=== PATIENT | female | born 1935 ===

== ENCOUNTER → 2017-06-16 | Outpatient (CLI) | payer MEDICARE ==
--- NOTE | 2017-06-16 14:16 | MM ---
Reason for exam: clinical finding. Last mammogram was performed 5 years and 5 months ago. History: Patient is postmenopausal. Physical Findings: Nurse did not find any significant physical abnormalities on exam. MG 3D Diag Mammo W/Cad HUEY Bilateral CC and MLO view(s) were taken. Prior study comparison: January 19, 2012, bilateral digital screening mammo w/CAD. January 15, 2011, bilateral digital screening mammo w/CAD. No significant new findings when compared with previous films. These results were verbally communicated with the patient and result sheet given to the patient on 06/16/17. ASSESSMENT: Negative, BI-RAD 1 RECOMMENDATION: Routine screening mammogram of both breasts in 1 year. Manage patient on a clinical basis.
== END | disposition home or self-care (01) ==
LOC: RADMAMWWP 13:27
PROVIDERS: ATTEND Internal Medicine
DX: N63 Unspecified lump in breast (principal)
CPT/HCPCS: G0204; G0279

== ENCOUNTER 2017-09-24 20:58 | Emergency (ER) | payer MEDICARE ==
[2017-09-24 21:10] VITALS: TEMP 97
[2017-09-24 21:10] LABS: Glucose,Whole Blood 93 mg/dL (75-99)
--- NOTE | 2017-09-24 21:32 | ED ---
General Adult HPI - General Chief complaint: Fall Stated complaint: Fall Time Seen by Provider: 09/24/17 21:23 Source: patient, family, EMS, RN notes reviewed Mode of arrival: EMS Limitations: no limitations - History of Present Illness Initial comments: Patient is a pleasant 81-year-old female presenting to the emergency department after a fall. Patient was reportedly on the third or fourth step. Patient fell and reportedly had her bottom and then head. Son states he did not witness it but heard it. He states patient was less responsive for several seconds once he rushed over to check on her. Patient does not recall the episode. Patient is unclear if she passed out. Patient denies any headache. No neck or back pain. No chest pain or dyspnea. No abdominal pain. No extremity injury. Patient does not take blood thinners. - Related Data Allergies Allergy/AdvReac Type Severity Reaction Status Date / Time No Known Allergies Allergy Verified 09/24/17 21:10 Review of Systems ROS Statement: Those systems with pertinent positive or pertinent negative responses have been documented in the HPI. ROS Other: All systems not noted in ROS Statement are negative. Constitutional: Denies: fever, chills Eyes: Denies: eye pain ENT: Denies: ear pain Respiratory: Denies: cough Cardiovascular: Denies: chest pain Endocrine: Denies: fatigue Gastrointestinal: Denies: abdominal pain Genitourinary: Denies: dysuria Musculoskeletal: Denies: back pain Skin: Denies: rash Neurological: Denies: headache, weakness, confusion Past Medical History Past Medical History: No Reported History History of Any Multi-Drug Resistant Organisms: None Reported Past Surgical History: Hysterectomy Past Psychological History: No Psychological Hx Reported Smoking Status: Former smoker Past Alcohol Use History: Rare Past Drug Use History: None Reported General Exam Limitations: no limitations General appearance: alert, in no apparent distress Head exam: Present: atraumatic, normocephalic Eye exam: Present: normal appearance, PERRL, EOMI. Absent: nystagmus ENT exam: Present: normal oropharynx Neck exam: Present: normal inspection. Absent: tenderness Respiratory exam: Present: normal lung sounds bilaterally Cardiovascular Exam: Present: regular rate, normal rhythm Expanded Peripheral pulses: 2+: Radial (R), Radial (L), Dorsalis Pedis (R), Dorsalis Pedis (L) GI/Abdominal exam: Present: soft. Absent: tenderness Extremities exam: Present: normal inspection, full ROM. Absent: tenderness Back exam: Present: normal inspection. Absent: tenderness, vertebral tenderness Neurological exam: Present: alert, oriented X3, CN II-XII intact. Absent: motor sensory deficit Expanded Patient oriented to: Present: person, place, time Speech: Present: fluid speech Cranial nerves: EOM's Intact: Normal, Facial Sensation: Normal Sensory exam: Upper Extremity Light Touch: Normal, Lower Extremity Light Touch: Normal Motor strength exam: RUE: 5, LUE: 5, RLE: 5, LLE: 5 Eye Response: (4) open spontaneously Motor Response: (6) obeys commands Verbal Response: (5) oriented Psychiatric exam: Present: normal affect, normal mood Skin exam: Present: normal color Course Vital Signs 09/24/17 09/24/17 09/24/17 21:02 22:30 23:37 Temperature 97.0 F L 97.0 F L Pulse Rate 75 82 70 Respiratory 20 20 18 Rate Blood Pressure 157/81 140/78 125/70 O2 Sat by Pulse 95 98 96 Oximetry - Reevaluation(s) Reevaluation #1: 09/24/17 23:32 Dr. Jaimes has been paged for admission for Dr. Lock. 09/25/17 00:42 Patient was updated on results and plan. Family was also updated. Case was discussed in detail with Dr. Jaimes, who will admit. Patient then refuses to stay. Patient does demonstrate medical decision making. Patient is made aware that causes of syncope have not been excluded at this time. It is unclear if patient's episode is related to a syncopal episode or retrograde amnesia from the fall and head injury. Patient will leave AGAINST MEDICAL ADVICE. EKG Findings - EKG Comments: EKG Findings:: Normal sinus rhythm 68. TX 150. QRS 80. QT 400. QTc 425. Left axis. Inferior Q waves. No acute ST change. Medical Decision Making - Medical Decision Making Patient did not wait for discharge instructions. Patient was advised to follow- up with her doctor Tuesday. - Lab Data Result diagrams: 09/24/17 21:18 09/24/17 21:18 Lab Results 09/24/17 09/24/17 09/24/17 Range/Units 21:04 21:18 21:18 WBC 6.9 (3.8-10.6) k/uL RBC 4.41 (3.80-5.40) m/uL Hgb 11.9 (11.4-16.0) gm/dL Hct 38.5 (34.0-46.0) % MCV 87.4 (80.0-100.0) fL MCH 27.0 (25.0-35.0) pg MCHC 30.9 L (31.0-37.0) g/dL RDW 13.6 (11.5-15.5) % Plt Count 438 (150-450) k/uL Neutrophils % 68 % Lymphocytes % 19 % Monocytes % 6 % Eosinophils % 4 % Basophils % 1 % Neutrophils # 4.7 (1.3-7.7) k/uL Lymphocytes # 1.3 (1.0-4.8) k/uL Monocytes # 0.4 (0-1.0) k/uL Eosinophils # 0.3 (0-0.7) k/uL Basophils # 0.1 (0-0.2) k/uL PT (9.0-12.0) sec INR (<1.2) APTT (22.0-30.0) sec Sodium (137-145) mmol/L Potassium (3.5-5.1) mmol/L Chloride (98-107) mmol/L Carbon Dioxide (22-30) mmol/L Anion Gap mmol/L BUN (7-17) mg/dL Creatinine (0.52-1.04) mg/dL Est GFR (MDRD) Af Amer (>60 ml/min/1.73 sqM) Est GFR (MDRD) Non-Af (>60 ml/min/1.73 sqM) Glucose (74-99) mg/dL POC Glucose (mg/dL) 93 (75-99) mg/dL POC Glu [employer] ID [place] Calcium (8.4-10.2) mg/dL Total Bilirubin (0.2-1.3) mg/dL AST (14-36) U/L ALT (9-52) U/L Alkaline Phosphatase (38-126) U/L Total Creatine Kinase 188 H (30-135) U/L CK-MB (CK-2) 3.2 H* (0.0-2.4) ng/mL CK-MB (CK-2) Rel Index 1.7 Troponin I <0.012 (0.000-0.034) ng/mL Total Protein (6.3-8.2) g/dL Albumin (3.5-5.0) g/dL Urine Color Urine Appearance (Clear) Urine pH (5.0-8.0) Ur Specific [place] (1.001-1.035) Urine Protein (Negative) Urine Glucose (UA) (Negative) Urine Ketones (Negative) Urine Blood (Negative) Urine Nitrite (Negative) Urine Bilirubin (Negative) Urine Urobilinogen (<2.0) mg/dL Ur Leukocyte Esterase (Negative) Urine RBC (0-5) /hpf Urine WBC (0-5) /hpf Urine WBC Clumps (None) /hpf Urine Bacteria (None) /hpf Urine Mucus (None) /hpf 09/24/17 09/24/17 09/24/17 Range/Units 21:18 21:18 21:18 WBC (3.8-10.6) k/uL RBC (3.80-5.40) m/uL Hgb (11.4-16.0) gm/dL Hct (34.0-46.0) % MCV (80.0-100.0) fL MCH (25.0-35.0) pg MCHC (31.0-37.0) g/dL RDW (11.5-15.5) % Plt Count (150-450) k/uL Neutrophils % % Lymphocytes % % Monocytes % % Eosinophils % % Basophils % % Neutrophils # (1.3-7.7) k/uL Lymphocytes # (1.0-4.8) k/uL Monocytes # (0-1.0) k/uL Eosinophils # (0-0.7) k/uL Basophils # (0-0.2) k/uL PT 10.4 (9.0-12.0) sec INR 1.0 (<1.2) APTT 24.2 (22.0-30.0) sec Sodium 140 (137-145) mmol/L Potassium 3.8 (3.5-5.1) mmol/L Chloride 106 (98-107) mmol/L Carbon Dioxide 22 (22-30) mmol/L Anion Gap 12 mmol/L BUN 21 H (7-17) mg/dL Creatinine 1.10 H (0.52-1.04) mg/dL Est GFR (MDRD) Af Amer 58 (>60 ml/min/1.73 sqM) Est GFR (MDRD) Non-Af 48 (>60 ml/min/1.73 sqM) Glucose 90 (74-99) mg/dL POC Glucose (mg/dL) (75-99) mg/dL POC Glu [employer] Specialist ID Calcium 9.5 (8.4-10.2) mg/dL Total Bilirubin 0.2 (0.2-1.3) mg/dL AST 31 (14-36) U/L ALT 42 (9-52) U/L Alkaline Phosphatase 71 (38-126) U/L Total Creatine Kinase (30-135) U/L CK-MB (CK-2) (0.0-2.4) ng/mL CK-MB (CK-2) Rel Index Troponin I (0.000-0.034) ng/mL Total Protein 6.8 (6.3-8.2) g/dL Albumin 3.9 (3.5-5.0) g/dL Urine Color Light Yellow Urine Appearance Clear (Clear) Urine pH 6.0 (5.0-8.0) Ur Specific [place] 1.004 (1.001-1.035) Urine Protein Negative (Negative) Urine Glucose (UA) Negative (Negative) Urine Ketones Negative (Negative) Urine Blood Negative (Negative) Urine Nitrite Negative (Negative) Urine Bilirubin Negative (Negative) Urine Urobilinogen <2.0 (<2.0) mg/dL Ur Leukocyte Esterase Trace H (Negative) Urine RBC <1 (0-5) /hpf Urine WBC 2 (0-5) /hpf Urine WBC Clumps Rare H (None) /hpf Urine Bacteria Rare H (None) /hpf Urine Mucus Rare H (None) /hpf - Radiology Data Radiology results: report reviewed (Computed tomography scan of the brain and cervical spine show no acute process. Degenerative disc disease. Age-related atrophy and chronic small vessel disease.), image reviewed (Chest x-ray shows no acute process.) Disposition Clinical Impression: Fall Disposition: Left Against Medical Advice Instructions: Fall Prevention for Older Adults (ED), Syncope (ED) Referrals: Ifeanyi Lock MD [Primary Care Provider] - 1-2 days
[2017-09-24 21:40] LABS: Basophils # (A) 0.1 k/uL (0-0.2); Basophils % (A) 1 %; CH 27.6; CHCM 31.8; Eosinophils # (A) 0.3 k/uL (0-0.7); Eosinophils % (A) 4 %; HCT 38.5 % (34.0-46.0); HDW 2.06; HGB 11.9 gm/dL (11.4-16.0); Luc # (Auto) 0.14; Luc % (Auto) 2; Lymphocytes # (A) 1.3 k/uL (1.0-4.8); Lymphocytes % (A) 19 %; MCHC 30.9 g/dL (31.0-37.0); MCV 87.4 fL (80.0-100.0); Mean Platelet Volume 6.8; Monocytes # (A) 0.4 k/uL (0-1.0); Monocytes % (A) 6 %; Neutrophils # (A) 4.7 k/uL (1.3-7.7); Neutrophils % (A) 68 %; RBC 4.41 m/uL (3.80-5.40); RDW 13.6 % (11.5-15.5); WBC 6.9 k/uL (3.8-10.6)
[2017-09-24 21:48] LABS: Partial Thromboplastin Time 24.2 sec (22.0-30.0); Prothrombin Time 10.4 sec (9.0-12.0)
[2017-09-24 21:50] LABS: Calcium 9.5 mg/dL (8.4-10.2); Potassium 3.8 mmol/L (3.5-5.1); Total Bilirubin 0.2 mg/dL (0.2-1.3); Total Protein 6.8 g/dL (6.3-8.2)
--- NOTE | 2017-09-24 21:52 | XR ---
EXAMINATION TYPE: XR chest 2V DATE OF EXAM: 09/24/2017 COMPARISON: NONE HISTORY: Syncope TECHNIQUE: Frontal and lateral views of the chest are obtained. FINDINGS: There is no focal air space opacity, pleural effusion, or pneumothorax seen. Mediastinum i s rotated to the right accentuating the right hilum and shifting the trachea towards the right. Focal curvilinear density at the right lateral chest is thought to represent overlying soft tissues versus pleural thickening. There is an exaggerated kyphosis of the thoracic spine and generalized osseous d emineralization with multilevel mild degenerative changes of the thoracic spine. Pulmonary per inflat ion and flattening of the diaphragms on the lateral image as well as increased anterior posterior reggie meter of the chest relates to COPD. Probable chronic prominent interstitial lung markings are noted. IMPRESSION: No acute cardiopulmonary process. Radiographic sequela of COPD.
[2017-09-24 22:03] LABS: Creatine Kinase 188 U/L (30-135)
[2017-09-24 22:16] LABS: Troponin I <0.012 ng/mL (0.000-0.034)
--- NOTE | 2017-09-24 22:16 | CT ---
EXAMINATION TYPE: CT brain filiberto clifford DATE OF EXAM: 09/24/2017 COMPARISON: NONE HISTORY: Patient complains of headache post syncopal fall today. Patient denies neck complaints at t chacorta of service. CT DLP: 1123.3 mGycm. Automated Exposure Control for Dose Reduction was Utilized. TECHNIQUE: CT scan of the head and cervical spine are performed without contrast. FINDINGS: FINDINGS: There is no acute intracranial hemorrhage or midline shift identified. There is diffuse ventricular and sulcal prominence consistent with diffuse age-related cerebral atrophy. T here is low-attenuation in the periventricular white matter consistent with chronic small vessel isch emic change. The globes are intact and the visualized sinuses are clear. Cervical spine is visualized in its entirety from C1 through upper thoracic levels and demonstrates s atisfactory alignment without evidence of acute fracture. There is degenerative grade 1 anterolisthes is of C2 on C3 and grade 2 anterolisthesis of C3 on C4. There is osseous fusion of C4 with C5 and ret rolisthesis of C5 over C6 (mild). There is no evidence of facet malalignment, jumped facets or perche d facets. No evidence of acute fracture is identified. Multilevel moderate to severe degenerative graham nges of the cervical spine are seen resulting in variable degrees of neural foraminal narrowing and a t least mild spinal canal stenosis at C4-C5 and C5-C6. Prevertebral soft tissue appears within normal limits. The C1-C2 articulation is unremarkable. IMPRESSION: 1. There is no acute fracture or dislocation evident in the cervical spine. 2. No acute intracranial hemorrhage, mass effect, or midline shift is seen. 3. There is diffuse age-related cerebral atrophy and chronic small vessel ischemic change noted. 4. Moderate to severe multilevel degenerative disc disease of the cervical spine resulting in at leas t mild spinal canal stenosis at C4-C5 and C5-C6 as well as variable degrees of neural foraminal narro wing.
[2017-09-24 22:21] LABS: Creatine Kinase MB 3.2 ng/mL (0.0-2.4)
[2017-09-24 22:45] LABS: Appearance,Urine Clear (Clear); Bacteria,Urine Rare /hpf; Bilirubin,Urine Negative (Negative); Glucose,Urine (UA) Negative (Negative); Ketones,Urine Negative (Negative); Leukocyte Esterase,Urine Trace (Negative); Mucus,Urine Rare /hpf; Nitrite,Urine Negative (Negative); Particle Count 484; Protein,Urine Negative (Negative); RBC,Urine <1 /hpf (0-5); Specific Gravity,Urine 1.004 (1.001-1.035); UA Billing (MACRO vs. MICRO) MICRO; Urobilinogen,Urine <2.0 mg/dL (<2.0); WBC,Urine 2 /hpf (0-5)
[2017-09-24 23:40] VITALS: BP 125/70; PULSE 70; RESP 18
== END 2017-09-25 00:50 | disposition left against medical advice (07) ==
LOC: EC 20:58
DX: Z04.3 Encounter for examination and observation following other accident (principal); M51.9 Unspecified thoracic, thoracolumbar and lumbosacral intervertebral disc disorder; G31.9 Degenerative disease of nervous system, unspecified; I67.9 Cerebrovascular disease, unspecified; Z87.891 Personal history of nicotine dependence
CPT/HCPCS: 36415; 70450; 71020; 72125; 80053; 81001; 82550; 82553; 84484; 85025; 85610; 85730; 93005; 99285

== ENCOUNTER 2019-04-12 17:37 | Emergency (ER) | payer MEDICARE ==
[2019-04-12 17:45] VITALS: RESP 18
[2019-04-12] MEDS ORDERED: DICYCLOMINE 10 MG/ML 2 ML AMP IM STA (18:03)
[2019-04-12] MEDS ORDERED: FAMOTIDINE 20 MG/2 ML VIAL IV STA (18:03)
[2019-04-12] MEDS ORDERED: SODIUM CHLORIDE 0.9% 500 ML 500 ML IV STA (18:03)
[2019-04-12] MEDS ORDERED: SODIUM CHLORIDE 0.9% 1,000 ML IV STA (18:03)
[2019-04-12] MEDS ORDERED: ONDANSETRON 4 MG/2 ML VIAL IVP STA (18:03)
--- NOTE | 2019-04-12 18:20 | ED ---
General Adult HPI - General Chief complaint: Nausea/Vomiting/Diarrhea Stated complaint: diarrhea, vomiting Time Seen by Provider: 04/12/19 17:46 Source: patient, RN/MD, RN notes reviewed Mode of arrival: ambulatory Limitations: no limitations - History of Present Illness Initial comments: Patient is a pleasant 83-year-old female presenting to the emergency Department with nausea vomiting diarrhea. Onset of symptoms was close to 1 week ago. Patient has vomited approximately twice daily. Patient has also had approximately 2 episodes daily of diarrhea. Patient is having some moderate lower abdominal discomfort. No fevers. Patient is tolerating liquids. Patient has decreased solid food intake. This is not a chronic problem. Patient did see her primary care physician, Dr. Lock prior to arrival who did request patient will receive some IV fluids and check her electrolytes - Related Data Home Medications Medication Instructions Recorded Confirmed Calcium Carbonate [Calcium] 600 mg PO DAILY 04/12/19 04/12/19 Magnesium 200 mg PO DAILY 04/12/19 04/12/19 Nitrofurantoin Monohyd/M-Cryst 100 mg PO Q12HR 04/12/19 04/12/19 [Macrobid] Oxybutynin Chloride [Ditropan XL] 10 mg PO HS 04/12/19 04/12/19 Potassium 99 mg PO DAILY 04/12/19 04/12/19 Previous Rx's Medication Instructions Recorded Ondansetron Odt [Zofran Odt] 4 mg PO Q8HR PRN #10 tab 04/12/19 Allergies Allergy/AdvReac Type Severity Reaction Status Date / Time No Known Allergies Allergy Verified 04/12/19 18:17 Review of Systems ROS Statement: Those systems with pertinent positive or pertinent negative responses have been documented in the HPI. ROS Other: All systems not noted in ROS Statement are negative. Constitutional: Denies: fever Eyes: Denies: eye pain ENT: Denies: ear pain Respiratory: Denies: cough Cardiovascular: Denies: chest pain Endocrine: Denies: fatigue Gastrointestinal: Reports: as per HPI, abdominal pain, nausea, vomiting, diarrhea Genitourinary: Denies: dysuria Musculoskeletal: Denies: back pain Skin: Denies: rash Neurological: Denies: weakness Past Medical History Past Medical History: No Reported History Additional Past Medical History / Comment(s): macular degeneration History of Any Multi-Drug Resistant Organisms: None Reported Past Surgical History: Hysterectomy Past Psychological History: No Psychological Hx Reported Smoking Status: Former smoker Past Alcohol Use History: Occasional Past Drug Use History: None Reported General Exam Limitations: no limitations General appearance: alert, in no apparent distress Head exam: Present: atraumatic Eye exam: Present: normal appearance, PERRL ENT exam: Present: normal oropharynx Neck exam: Present: normal inspection Respiratory exam: Present: normal lung sounds bilaterally Cardiovascular Exam: Present: regular rate, normal rhythm Expanded Peripheral pulses: 2+: Radial (R), Radial (L), Posterior Tibialis (R), Posterior Tibialis (L), Dorsalis Pedis (R), Dorsalis Pedis (L) GI/Abdominal exam: Present: soft, tenderness (Mild tenderness lower abdomen), normal bowel sounds. Absent: distended, guarding, rebound, rigid, pulsatile mass Extremities exam: Present: normal inspection. Absent: pedal edema, calf tenderness Neurological exam: Present: alert Psychiatric exam: Present: normal affect, normal mood Skin exam: Present: normal color Course Vital Signs 04/12/19 17:42 Temperature 97.8 F Pulse Rate 75 Respiratory 18 Rate Blood Pressure 130/82 O2 Sat by Pulse 96 Oximetry Medical Decision Making - Medical Decision Making Patient reevaluated and resting comfortably in bed. Abdomen soft and nontender. Patient feels much better and requests discharge home. Patient family updated on results and need for follow-up as well as reclamation for outpatient ultrasound gallbladder. - Lab Data Result diagrams: 04/12/19 17:58 04/12/19 17:58 Lab Results 04/12/19 04/12/19 04/12/19 Range/Units 17:58 17:58 17:58 WBC 9.7 (3.8-10.6) k/uL RBC 5.23 (3.80-5.40) m/uL Hgb 14.5 (11.4-16.0) gm/dL Hct 44.7 (34.0-46.0) % MCV 85.5 (80.0-100.0) fL MCH 27.7 (25.0-35.0) pg MCHC 32.3 (31.0-37.0) g/dL RDW 14.3 (11.5-15.5) % Plt Count 489 H (150-450) k/uL Neutrophils % 76 % Lymphocytes % 14 % Monocytes % 7 % Eosinophils % 1 % Basophils % 0 % Neutrophils # 7.4 (1.3-7.7) k/uL Lymphocytes # 1.4 (1.0-4.8) k/uL Monocytes # 0.7 (0-1.0) k/uL Eosinophils # 0.1 (0-0.7) k/uL Basophils # 0.0 (0-0.2) k/uL PT 10.1 (9.0-12.0) sec INR 0.9 (<1.2) APTT 24.1 (22.0-30.0) sec Sodium 133 L (137-145) mmol/L Potassium 3.8 (3.5-5.1) mmol/L Chloride 95 L (98-107) mmol/L Carbon Dioxide 24 (22-30) mmol/L Anion Gap 14 mmol/L BUN 25 H (7-17) mg/dL Creatinine 0.97 (0.52-1.04) mg/dL Est GFR (CKD-EPI)AfAm 62 (>60 ml/min/1.73 sqM) Est GFR (CKD-EPI)NonAf 54 (>60 ml/min/1.73 sqM) Glucose 105 H (74-99) mg/dL Calcium 10.1 (8.4-10.2) mg/dL Total Bilirubin 0.7 (0.2-1.3) mg/dL AST 50 H (14-36) U/L ALT 38 (9-52) U/L Alkaline Phosphatase 93 (38-126) U/L Total Protein 8.3 H (6.3-8.2) g/dL Albumin 5.0 (3.5-5.0) g/dL Amylase 41 (30-110) U/L Lipase 71 (23-300) U/L Urine Color Urine Appearance (Clear) Urine pH (5.0-8.0) Ur Specific [place] (1.001-1.035) Urine Protein (Negative) Urine Glucose (UA) (Negative) Urine Ketones (Negative) Urine Blood (Negative) Urine Nitrite (Negative) Urine Bilirubin (Negative) Urine Urobilinogen (<2.0) mg/dL Ur Leukocyte Esterase (Negative) Urine RBC (0-5) /hpf Urine WBC (0-5) /hpf Urine Bacteria (None) /hpf Hyaline Casts (0-2) /lpf Urine Mucus (None) /hpf 04/12/19 Range/Units 18:19 WBC (3.8-10.6) k/uL RBC (3.80-5.40) m/uL Hgb (11.4-16.0) gm/dL Hct (34.0-46.0) % MCV (80.0-100.0) fL MCH (25.0-35.0) pg MCHC (31.0-37.0) g/dL RDW (11.5-15.5) % Plt Count (150-450) k/uL Neutrophils % % Lymphocytes % % Monocytes % % Eosinophils % % Basophils % % Neutrophils # (1.3-7.7) k/uL Lymphocytes # (1.0-4.8) k/uL Monocytes # (0-1.0) k/uL Eosinophils # (0-0.7) k/uL Basophils # (0-0.2) k/uL PT (9.0-12.0) sec INR (<1.2) APTT (22.0-30.0) sec Sodium (137-145) mmol/L Potassium (3.5-5.1) mmol/L Chloride (98-107) mmol/L Carbon Dioxide (22-30) mmol/L Anion Gap mmol/L BUN (7-17) mg/dL Creatinine (0.52-1.04) mg/dL Est GFR (CKD-EPI)AfAm (>60 ml/min/1.73 sqM) Est GFR (CKD-EPI)NonAf (>60 ml/min/1.73 sqM) Glucose (74-99) mg/dL Calcium (8.4-10.2) mg/dL Total Bilirubin (0.2-1.3) mg/dL AST (14-36) U/L ALT (9-52) U/L Alkaline Phosphatase (38-126) U/L Total Protein (6.3-8.2) g/dL Albumin (3.5-5.0) g/dL Amylase (30-110) U/L Lipase (23-300) U/L Urine Color Yellow Urine Appearance Clear (Clear) Urine pH 5.5 (5.0-8.0) Ur Specific [place] 1.014 (1.001-1.035) Urine Protein Trace H (Negative) Urine Glucose (UA) Negative (Negative) Urine Ketones 2+ H (Negative) Urine Blood Negative (Negative) Urine Nitrite Negative (Negative) Urine Bilirubin Negative (Negative) Urine Urobilinogen <2.0 (<2.0) mg/dL Ur Leukocyte Esterase Moderate H (Negative) Urine RBC 1 (0-5) /hpf Urine WBC 1 (0-5) /hpf Urine Bacteria Rare H (None) /hpf Hyaline Casts 4 H (0-2) /lpf Urine Mucus Rare H (None) /hpf - Radiology Data Radiology results: report reviewed (ET scan abdomen pelvis shows no acute abnormality. Possible gallstones) Disposition Clinical Impression: Dehydration Disposition: HOME SELF-CARE Condition: Stable Instructions (If sedation given, give patient instructions): Acute Nausea and Vomiting (ED), Acute Diarrhea (ED) Additional Instructions: Please do follow-up with Dr. Lock in the next couple of days for recheck. Return for uncontrolled vomiting, pain, fevers, worsening or changing symptoms or other concerns. Have Dr. Lock consider ultrasound of the gallbladder. Prescriptions: Ondansetron Odt [Zofran Odt] 4 mg PO Q8HR PRN #10 tab PRN Reason: Nausea Is patient prescribed a controlled substance at d/c from ED?: No Referrals: Ifeanyi Lock MD [Primary Care Provider] - 1-2 days Time of Disposition: 20:11
[2019-04-12 18:32] LABS: Basophils % (A) 0 %; Eosinophils # (A) 0.1 k/uL (0-0.7); Eosinophils % (A) 1 %; HCT 44.7 % (34.0-46.0); HGB 14.5 gm/dL (11.4-16.0); Lymphocytes # (A) 1.4 k/uL (1.0-4.8); Lymphocytes % (A) 14 %; MCH 27.7 pg (25.0-35.0); MCHC 32.3 g/dL (31.0-37.0); MCV 85.5 fL (80.0-100.0); Mean Platelet Volume 7.4; Monocytes # (A) 0.7 k/uL (0-1.0); Monocytes % (A) 7 %; Neutrophils # (A) 7.4 k/uL (1.3-7.7); Neutrophils % (A) 76 %; Platelet Count 489 k/uL (150-450); RBC 5.23 m/uL (3.80-5.40); RDW 14.3 % (11.5-15.5); WBC 9.7 k/uL (3.8-10.6)
[2019-04-12 18:42] LABS: Calcium 10.1 mg/dL (8.4-10.2); Potassium 3.8 mmol/L (3.5-5.1); Total Bilirubin 0.7 mg/dL (0.2-1.3); Total Protein 8.3 g/dL (6.3-8.2)
[2019-04-12 18:45] LABS: Appearance,Urine Clear (Clear); Bacteria,Urine Rare /hpf; Bilirubin,Urine Negative (Negative); Blood,Urine Negative (Negative); Color,Urine Yellow; Glucose,Urine (UA) Negative (Negative); Hyaline Casts,Urine 4 /lpf (0-2); Ketones,Urine 2+ (Negative); Leukocyte Esterase,Urine Moderate (Negative); Mucus,Urine Rare /hpf; Nitrite,Urine Negative (Negative); PH, Urine 5.5 (5.0-8.0); Protein,Urine Trace (Negative); RBC,Urine 1 /hpf (0-5); Specific Gravity,Urine 1.014 (1.001-1.035); Urobilinogen,Urine <2.0 mg/dL (<2.0); WBC,Urine 1 /hpf (0-5)
[2019-04-12 18:51] LABS: INR 0.9 (<1.2); Partial Thromboplastin Time 24.1 sec (22.0-30.0); Prothrombin Time 10.1 sec (9.0-12.0)
--- NOTE | 2019-04-12 19:58 | CT ---
EXAMINATION TYPE: CT abdomen pelvis w con DATE OF EXAM: 04/12/2019 COMPARISON: None HISTORY: N/V/D x 6days CT DLP: 579.6 mGycm Automated exposure control for dose reduction was used. TECHNIQUE: Helical acquisition of images was performed from the lung bases through the pelvis. CONTRAST: Performed without Oral Contrast and with IV Contrast, patient injected with 80 mL of Isovue 300. FINDINGS: There is some mild scarring and atelectasis at the lung bases. Heart is enlarged. There is no pericar dial effusion. There is no pleural effusion. Liver spleen pancreas appear normal. Bile ducts are not dilated. There is no adrenal mass. Bile ducts are not dilated. There are probably gallstones at the g allbladder fundus. There is no adrenal mass. There are left renal parapelvic cysts. There is no hydronephrosis. Ureters are not dilated. Bladder distends smoothly. There is no inguinal hernia. There is no free fluid in th e pelvis. There is no sign of a bowel obstruction.: There is no mesenteric edema. There is no ascites or free air. There is 40% compression fracture of T 12 that appears old. IMPRESSION: THERE IS SOME SCARRING AND ATELECTASIS AT THE LUNG BASES. CARDIOMEGALY. NO ACUTE ABNORMALITY WITHIN T HE ABDOMEN AND PELVIS. THERE ARE PROBABLY GALLSTONES.
[2019-04-12 20:48] VITALS: BP 133/73; PULSE 72; TEMP 98
== END 2019-04-12 20:37 | disposition home or self-care (01) ==
LOC: EC 17:37
DX: E86.0 Dehydration (principal); R11.2 Nausea with vomiting, unspecified; R19.7 Diarrhea, unspecified; Z87.891 Personal history of nicotine dependence; Z79.899 Other long term (current) drug therapy
CPT/HCPCS: 36415; 80053; 82150; 83690; 85025; 85610; 85730; 81001; 74177; 99284; 96374; 96375; 96361 ×2; 96372; J0500; J2405; Q9967

== ENCOUNTER 2019-07-26 10:41 | Day surgery (SDC) | payer MEDICARE ==
[~2019-07-26 10:41] MED LIST: HEPARIN SODIUM,PORCINE 5,000 UNIT/ML 1 ML VIAL SQ ONE; HYDROmorphone 0.5 MG/0.5 ML SYRINGE IVP PRN; LACTATED RINGERS 1,000 ML IV SCH; LIDOCAINE 1% 20 ML VIAL (10MG/ML) FOR IV START INTRADERMA PRN; ONDANSETRON 4 MG/2 ML VIAL IVP ONE
[2019-07-26] MEDS ORDERED: fentaNYL (PF) 50 MCG/ML 2 ML AMP ONE (12:09)
[2019-07-26] MEDS ORDERED: SUCCINYLCHOLINE CHLORIDE 100 MG/5 ML SYR IV ONE (12:09)
[2019-07-26] MEDS ORDERED: PROPOFOL 10 MG/ML 20 ML VIAL IV ONE (12:09)
[2019-07-26] MEDS ORDERED: LIDOCAINE 1% INJ 10MG/ML (20 ML MDV) ONE (12:09)
[2019-07-26] MEDS ORDERED: ROCURONIUM BROMIDE 10 MG/ML 10 ML VIAL IV ONE (12:09)
[2019-07-26] MEDS ORDERED: NEOSTIGMINE 1 MG/ML 10 ML VIAL ONE (12:09)
[2019-07-26] MEDS ORDERED: GLYCOPYRROLATE 0.2 MG/ML 2 ML VIAL ONE (12:09)
[2019-07-26] MEDS ORDERED: BUPIVACAINE (PF) 0.25% 30 ML VIAL SQ ONE ×2 (12:14)
[2019-07-26] MEDS ORDERED: LACTATED RINGERS 1,000 ML IV ONE (12:51)
[2019-07-26] MEDS ORDERED: ONDANSETRON 4 MG/2 ML VIAL IVP PRN (13:07)
[2019-07-26] MEDS ORDERED: NALOXONE 0.4 MG/ML 1 ML VIAL IV PRN (13:07)
[2019-07-26] MEDS ORDERED: IBUPROFEN 600 MG TAB PO PRN (13:09)
--- NOTE | 2019-07-26 13:15 | P.OP ---
Date of Procedure: 07/26/19 Preoperative Diagnosis: Symptomatic cholelithiasis Postoperative Diagnosis: Symptomatic cholelithiasis Procedure(s) Performed: Laparoscopic cholecystectomy Anesthesia: ALMA Surgeon: Elizabet Curtis Pathology: other (Gallbladder and contents) Condition: stable Disposition: observation Indications for Procedure: 83-year-old female initially presented after multiple attacks of what appeared to be cholecystitis. On workup she was found to have cholelithiasis. Due to multiple attacks, plan was laparoscopic cholecystectomy. The patient was excellent the risks, benefits and alternatives to the procedure and did provide consent prior to attending the operating suite. Operative Findings: Distended gallbladder and cholelithiasis Description of Procedure: The patient was brought into the operating suite and placed in supine position on the operating table. Sedation was provided by anesthesia and the patient underwent endotracheal intubation. The patient was then prepped and draped in regular sterile fashion. An infraumbilical incision was made dissection was carried to the fascia the fascia was incised and a 12 mm trocar was placed. Pneumoperitoneum was achieved. 3 additional trochars were then placed in the subxiphoid and right upper quadrant positions. The gallbladder was grasped and retracted and was noted to have some adhesive tissue to the omentum. This was dissected free. Dissection was carried to skeletonize both the cystic duct and cystic artery. The cystic duct was clipped proximally and distally and ligated. The cystic artery was clipped both proximally and distally and then ligated. Electrocautery was used to dissect the gallbladder from the gallbladder fossa on the liver bed. The gallbladder was then placed in an Endo Catch bag and removed from the abdomen. Irrigation was placed in the right upper quadrant. Pneumoperitoneum was released after hemostasis was confirmed. The infra umbilical incision site was closed with 0 Vicryl suture. All skin incisions were closed with 4-0 Vicryl subcuticular suture. The patient was awakened in the operating suite and taken to postanesthesia care unit in stable condition.
[2019-07-26 14:20] VITALS: BMI 33.5
[2019-07-26] MEDS: HEPARIN SODIUM,PORCINE 5,000 UNIT/ML 1 ML VIAL SQ SCH (16:56)
[2019-07-26] MEDS: LACTATED RINGERS 1,000 ML IV SCH ×2 (16:57→20:31)
[2019-07-26] MEDS ORDERED: OXYBUTYNIN 10 MG TAB.ER.24 PO SCH (21:00)
[2019-07-27] MEDS: HEPARIN SODIUM,PORCINE 5,000 UNIT/ML 1 ML VIAL SQ SCH ×2 (00:31→08:50)
[2019-07-27 04:39] VITALS: TEMP 98.2
[2019-07-27 08:16] LABS: Basophils # (A) 0.1 k/uL (0-0.2); Basophils % (A) 1 %; Eosinophils # (A) 0.3 k/uL (0-0.7); Eosinophils % (A) 5 %; HCT 39.1 % (34.0-46.0); HGB 12.7 gm/dL (11.4-16.0); Lymphocytes % (A) 16 %; MCH 28.6 pg (25.0-35.0); MCHC 32.6 g/dL (31.0-37.0); MCV 87.8 fL (80.0-100.0); Mean Platelet Volume 6.9; Monocytes # (A) 0.3 k/uL (0-1.0); Monocytes % (A) 5 %; Neutrophils # (A) 4.5 k/uL (1.3-7.7); Neutrophils % (A) 72 %; Platelet Count 395 k/uL (150-450); RBC 4.45 m/uL (3.80-5.40); RDW 14.3 % (11.5-15.5); WBC 6.2 k/uL (3.8-10.6)
[2019-07-27 08:32] LABS: Albumin 3.8 g/dL (3.5-5.0); Calcium 9.4 mg/dL (8.4-10.2); Potassium 4.3 mmol/L (3.5-5.1); Total Bilirubin 0.7 mg/dL (0.2-1.3); Total Protein 6.6 g/dL (6.3-8.2)
[2019-07-27 08:42] VITALS: BP 106/72; PULSE 73; RESP 16
--- NOTE | 2019-07-27 11:00 | P.DS ---
Providers Attending physician: Elizabet Curtis DO Primary care physician: [facility] Course: 83-year-old female presented for an elective laparoscopic cholecystectomy. Postprocedure, the patient was sent to the postsurgical floor for observation. She was evaluated by physical therapy for any possibility of rehabilitation. Physical therapy found her overall steady but did recommend outpatient physical therapy referral. Otherwise, she was stable for discharge. Procedures: Laparoscopic cholecystectomy Patient Condition at Discharge: Fair Plan - Discharge Summary Discharge Rx Participant: No New Discharge Prescriptions: Continue Oxybutynin Chloride [Ditropan XL] 10 mg PO HS Potassium 99 mg PO DAILY Magnesium 200 mg PO DAILY Calcium Carbonate [Calcium] 600 mg PO DAILY Discharge Medication List Calcium Carbonate [Calcium] 600 mg PO DAILY 04/12/19 [History] Magnesium 200 mg PO DAILY 04/12/19 [History] Oxybutynin Chloride [Ditropan XL] 10 mg PO HS 04/12/19 [History] Potassium 99 mg PO DAILY 04/12/19 [History] Follow up Appointment(s)/Referral(s): Elizabet Curtis DO [Doctor of Osteopathic Medicine] - 1 Week Activity/Diet/Wound Care/Special Instructions: Okay to shower No lifting greater than 5 pounds Take pain medication as necessary Stay on a low-fat diet Discharge Disposition: HOME SELF-CARE
== END 2019-07-27 11:53 | disposition home or self-care (01) ==
LOC: OR 10:41 → 6PED 13:14 → OR 07-27 11:53
PROVIDERS: ATTEND Surgery
DX: K80.10 Calculus of gallbladder with chronic cholecystitis without obstruction (principal); E78.5 Hyperlipidemia, unspecified; D64.9 Anemia, unspecified; Z86.19 Personal history of other infectious and parasitic diseases; Z90.710 Acquired absence of both cervix and uterus; Z98.890 Other specified postprocedural states; Z80.41 Family history of malignant neoplasm of ovary; Z82.0 Family history of epilepsy and other diseases of the nervous system; Z79.899 Other long term (current) drug therapy; Z87.891 Personal history of nicotine dependence
CPT/HCPCS: 97162; 97165; 88304; 80053; 85025; 47562; J1644 ×2; J2710; J0690; J2405; J2001; J3010; J0330; J2704

== ENCOUNTER 2022-01-08 10:39 | Emergency (ER) | payer MEDICARE ==
[2022-01-08 10:45] VITALS: TEMP 98.2
--- NOTE | 2022-01-08 11:39 | XR ---
EXAMINATION TYPE: XR Hip RT and AP Pelvis DATE OF EXAM: 01/08/2022 COMPARISON: CT dated 04/12/2019 HISTORY: Right hip pain TECHNIQUE: A single AP view of the pelvis is obtained. Two views of the right hip are obtained. FINDINGS: Diffuse osteopenia. Vertical lucency superimposed on the lateral superior aspect of the right acetabu lum suggestive of a nondisplaced fracture, please correlate clinically. No other definite acute pelvi c bone or hip fracture identified. Moderate degenerative changes of the hip joints. Degenerative changes of the symphysis pubis and sacr oiliac joints. Severe degenerative changes of the lower lumbar spine. The sacrum is obscured by the o verlying bowel gas. Arterial atherosclerotic calcifications. IMPRESSION: Suspected nondisplaced fracture of the superior lateral aspect of the right acetabulum as described a emiliano, please correlate clinically for history of trauma/fall.
--- NOTE | 2022-01-08 12:25 | CT ---
EXAMINATION TYPE: CT hip RT wo con DATE OF EXAM: 01/08/2022 COMPARISON: None HISTORY: Right hip pain Automated exposure control for dose reduction was used. Unenhanced CT of the right hip was performed with bone and soft tissue window settings submitted. FINDINGS: There is a right-sided superior acetabular fracture noted at the superior acetabular lip. Mild commin ution noted. There appear to be several lesions within the acetabular supra-acetabular region suggest ing possible pathologic component. There is surrounding hematoma noted. No additional fractures seen within the [id number]. [id number] degenerative narrowing right hip joint space. No evidence for pelvic mass. Degenerative change lumbar spine. IMPRESSION: FRACTURE AT THE SUPERIOR LIP OF THE RIGHT ACETABULUM WITH MILD COMMINUTION. FINDINGS SUGGEST POSSIBLE PATHOLOGIC COMPONENT.
[2022-01-08 12:52] VITALS: BP 148/92; PULSE 61; RESP 16
--- NOTE | 2022-01-08 13:31 | ED ---
General Adult HPI - General Chief complaint: Extremity Injury, Lower Stated complaint: fractured hip Time Seen by Provider: 01/08/22 10:47 Source: patient, RN notes reviewed Mode of arrival: wheelchair Limitations: no limitations - History of Present Illness Initial comments: This 86-year-old female presents emergency Department chief complaint of right hip pain. States has been bothersome for 1 week. Patient states that she was seen in urgent care told that she had a fracture. Patient contacted orthopedics associate which she seen in the past, advised patient come emergency department. Patient states she seen Dr. Hastings. Patient denies any falls. Patient has a bowel bladder incontinence or retention. Patient states that she says shortness of right hip. No other complaints. - Related Data Home Medications Medication Instructions Recorded Confirmed Magnesium 200 mg PO DAILY 04/12/19 01/08/22 Acetaminophen Tab [Tylenol Tab] 1,000 mg PO BID 01/08/22 01/08/22 Aspirin EC [Ecotrin Low Dose] 81 mg PO DAILY 01/08/22 01/08/22 Atorvastatin [Lipitor] 10 mg PO DAILY 01/08/22 01/08/22 Biotin 5 mg PO DAILY 01/08/22 01/08/22 Calcium Carbonate [Calcium] 600 mg PO DAILY 01/08/22 01/08/22 Dicyclomine [Bentyl] 10 mg PO Q12H 01/08/22 01/08/22 Leg Cramps 1 tab PO DAILY PRN 01/08/22 01/08/22 Loperamide HCl [Imodium A-D] 2 mg PO Q4H PRN 01/08/22 01/08/22 Lutein 10 mg PO DAILY 01/08/22 01/08/22 [place]-3 Fatty Acids/Fish Oil [Fish 1 cap PO DAILY 01/08/22 01/08/22 Oil 1,000 mg Softgel] Oxybutynin ER [Ditropan Xl] 15 mg PO DAILY 01/08/22 01/08/22 Allergies Allergy/AdvReac Type Severity Reaction Status Date / Time No Known Allergies Allergy Verified 01/08/22 12:48 Review of Systems ROS Statement: Those systems with pertinent positive or pertinent negative responses have been documented in the HPI. ROS Other: All systems not noted in ROS Statement are negative. Past Medical History Past Medical History: Eye Disorder Additional Past Medical History / Comment(s): macular degeneration - unable to read or write well. History of Any Multi-Drug Resistant Organisms: None Reported Past Surgical History: Cholecystectomy, Hysterectomy Past Anesthesia/Blood Transfusion Reactions: No Reported Reaction Past Psychological History: No Psychological Hx Reported Smoking Status: Former smoker Past Alcohol Use History: Occasional Past Drug Use History: None Reported - Past Family History Sister(s) Family Medical History: Cancer Additional Family Medical History / Comment(s): OVARIAN CANCER General Exam Limitations: no limitations General appearance: alert, in no apparent distress Head exam: Present: atraumatic, normocephalic, normal inspection Respiratory exam: Present: normal lung sounds bilaterally. Absent: respiratory distress, wheezes, rales, rhonchi, stridor Cardiovascular Exam: Present: regular rate, normal rhythm, normal heart sounds. Absent: systolic murmur, diastolic murmur, rubs, gallop, clicks Extremities exam: Present: other (Right hip there is tenderness in the lateral portion, full range of motion neurovascular intact no obvious deformity no shortening or rotation) Back exam: Present: full ROM. Absent: tenderness Skin exam: Present: warm, dry, intact, normal color. Absent: rash Course Vital Signs 01/08/22 01/08/22 10:42 12:50 Temperature 98.2 F Pulse Rate 64 61 Respiratory 18 16 Rate Blood Pressure 175/75 148/92 O2 Sat by Pulse 98 96 Oximetry Medical Decision Making - Medical Decision Making Patient did present for right hip pain x-ray and CT were obtained there is superior acetabular fracture images were reviewed by Dr. Hastings recommends patient be toe-touch 18, will follow-up with him in office in one week. Disposition Clinical Impression: Right acetabular fracture Disposition: HOME SELF-CARE Condition: Stable Instructions (If sedation given, give patient instructions): Pelvic Fracture (ED) Additional Instructions: Please return to the Emergency Department if symptoms worsen or any other concerns. Is patient prescribed a controlled substance at d/c from ED?: No Referrals: Margot Ramirez [Primary Care Provider] - 1-2 days Ellis Hastings DO [Doctor of Osteopathic Medicine] - 1-2 days Time of Disposition: 13:39
== END 2022-01-08 14:01 | disposition home or self-care (01) ==
LOC: EC 10:39 → SUPCPDRO 10:39 → EC 14:01
DX: S32.491A Other specified fracture of right acetabulum, initial encounter for closed fracture (principal); Z79.82 Long term (current) use of aspirin; Z90.49 Acquired absence of other specified parts of digestive tract; Z90.710 Acquired absence of both cervix and uterus; Z87.891 Personal history of nicotine dependence; X58.XXXA Exposure to other specified factors, initial encounter
CPT/HCPCS: 73502; 99284

== ENCOUNTER 2022-02-16 10:11 | Observation (INO) | payer MEDICARE ==
[2022-02-09 16:18] VITALS: BMI 23.2
[~2022-02-16 10:11] MED LIST changes: +ACETAMINOPHEN TAB 500 MG TAB PO PRN; +GABAPENTIN 300 MG CAP PO PRN; -HEPARIN SODIUM,PORCINE 5,000 UNIT/ML 1 ML VIAL SQ ONE; -HYDROmorphone 0.5 MG/0.5 ML SYRINGE IVP PRN; -LACTATED RINGERS 1,000 ML IV SCH; -LIDOCAINE 1% 20 ML VIAL (10MG/ML) FOR IV START INTRADERMA PRN; +MELOXICAM 7.5 MG TAB PO PRN; -ONDANSETRON 4 MG/2 ML VIAL IVP ONE; +TRANEXAMIC ACID IN NACL,ISO-OS 1,000 MG in SALINE 1 100ML.BAG IVPB PRN
[2022-02-16] MEDS ORDERED: ONDANSETRON 4 MG/2 ML VIAL IVP PRN (10:43)
[2022-02-16] MEDS ORDERED: HYDROmorphone 0.5 MG/0.5 ML SYRINGE IVP PRN ×2 (10:43)
[2022-02-16] MEDS ORDERED: MAGNESIUM HYDROXIDE 2,400 MG/10 ML CUP PO PRN (10:43)
[2022-02-16] MEDS ORDERED: HYDROmorphone 0.2 MG/1 ML SYRINGE IVP PRN (10:43)
[2022-02-16] MEDS ORDERED: NALOXONE 0.4 MG/ML 1 ML VIAL IV PRN (10:43)
[2022-02-16] MEDS ORDERED: HYDROcodone/APAP 7.5-325MG 1 EACH TAB PO PRN (10:45)
[2022-02-16] MEDS ORDERED: LACTATED RINGERS 1,000 ML IV ONE (10:54)
[2022-02-16] MEDS ORDERED: ROPIVACAINE 5 MG/ML 30 ML VIAL MISCELLANE ONE ×2 (10:56→12:07)
[2022-02-16] MEDS ORDERED: fentaNYL (PF) 50 MCG/ML 2 ML AMP ONE (11:02)
[2022-02-16] MEDS ORDERED: PHENYLEPHRINE-0.9% NACL SYG 1,000 MCG/10 ML SYRINGE ONE (11:02)
[2022-02-16] MEDS ORDERED: diphenhydrAMINE 50 MG/ML 1 ML VIAL ONE (11:02)
[2022-02-16] MEDS ORDERED: ePHEDrine 50 MG/ML 1 ML VIAL ONE (11:02)
[2022-02-16] MEDS ORDERED: MIDAZOLAM 2 MG/2 ML VIAL ONE (11:02)
[2022-02-16] MEDS ORDERED: TRANEXAMIC ACID IN NACL,ISO-OS 1,000 MG/100 ML BAG ONE (11:02)
[2022-02-16] MEDS ORDERED: PROPOFOL 10 MG/ML 20 ML VIAL IV ONE (11:02)
[2022-02-16] MEDS ORDERED: ceFAZolin 1,000 MG in SODIUM CHLORIDE 0.9% 1,000 ML IRRIGATION ONE (11:05)
--- NOTE | 2022-02-16 12:16 | P.OP ---
Date of Procedure: 02/16/22 Preoperative Diagnosis: Severe osteoarthritis right hip status post acetabular fracture Postoperative Diagnosis: Severe osteoarthritis right hip status post acetabular fracture Procedure(s) Performed: Right total hip arthroplasty direct anterior approach Implants: [employer] Polarstem standard size 3 collared [employer] R3, multi-hole hemispherical acetabular shell, 48 mm [employer] Reflection 6.5 mm cancellus screw, 20 mm 2, 15 mm, 25 mm [employer] R3, XLPE 20 acetabular liner [employer] Oxinium femoral head 32 m, +0 All components were press-fit. The articulation is Oxinium on polyethylene. Anesthesia: spinal Surgeon: Ellis Hastings Carrier Washer #1: Dolores White Estimated Blood Loss (ml): 150 Pathology: other (Femoral head) Condition: stable Disposition: PACU Indications for Procedure: After failure of conservative treatment we discussed the surgical and nonsurgical treatment options at length. Patient wishes to proceed with a total hip arthroplasty with a direct anterior approach. Complications specific to this procedure were discussed at length, including but not limited to infection, leg length discrepancy, dislocation, nerve injury, and fracture. Covid-19 was also discussed at length with the patient, and they are aware of the current policies and procedures. The patient was given the option of delaying surgery, but they elect to proceed knowing these risks. Patient is aware of all these complications and informed consent was obtained Operative Findings: The operative findings are consistent with severe osteoarthritis of the right hip status post acetabular fracture. Description of Procedure: Patient was seen and evaluated in the preoperative area and the consent was reviewed. The operative site was marked with a skin marker. The patient was then brought to the operating room and given preoperative antibiotics intravenously. 1 g of Tranexamic acid was also given intravenously. A spinal anesthetic was administered by the anesthesia department. The patient was then placed on the [place] table with the bony prominences well-padded. The hip area was then prepped with a ChloraPrep solution and draped in the usual sterile fashion. A universal timeout was then performed, which confirmed the patient's name, surgical site, ALLERGIES, and procedure being performed on the consent. Next the incision site was located at 1 cm distal and 2 cm lateral to the anterior superior iliac spine. The skin and subcutaneous tissues were sharply incised. Incision was carefully dissected down to the fascia overlying the tensor fascia mateo muscle. This fascia was then incised in line with the incision. Care was taken to stay laterally in order to avoid injuring the lateral femoral cutaneous nerve. Next, using blunt finger dissection, the tensor fascia mateo muscle was dissected off its investing fascia. The muscle was then carefully retracted laterally with a cobra retractor over the lateral neck of the femur. Next, the circumflex vessels were identified and cauterized using the AquaMantis device. The anterior hip capsule was then exposed. The capsule was then opened and an inverted T fashion. Cobra retractors were then placed intracapsularly. The retractors were maintained intracapsular throughout the procedure. The proximal femur was then visualized. Fluoroscopic x-rays were then taken in order to evaluate the preoperative leg lengths. A small amount of traction was placed on the leg. The femoral neck was then osteotomized at the appropriate level above the lesser trochanter. A small wedge of bone was then removed from the remaining femoral head. Next, using a corkscrew the femoral head was removed from the acetabulum. On gross visual inspection, the femoral head had complete loss of articular cartilage and multiple periarticular osteophytes. The femoral head was then measured. Attention was then turned to the acetabulum. The acetabulum was exposed and any remaining labrum was excised. Sequential reaming of the acetabulum was performed using fluoroscopic guidance until there was a good bed of bleeding cancellus bone. When the appropriate size was r eached, a trial was then placed. The position and fit of the trial was checked with fluoroscopy. The trial was then removed. Then, using fluoroscopic guidance, the final implant was impacted at 20 of anteversion and 40 of abduction, and fully seated in the acetabulum. 4 screws were then placed in the acetabulum. Again fluoroscopy was used to check position of the screws. Next, the liner was then impacted, with a 20 elevated liner located in the anterior superior quadrant. Component locking was confirmed. Attention was then directed to the femur. With the aid of the [place] table, the femur was externally rotated to approximately 130, extended, and adducted under the opposite leg. A side hook was then placed under the proximal femur, and the side hook elevator was used to elevate the proximal femur while releasing the capsule. Retractors were then placed. A capsular release was performed, as well as a release of the conjoined tendon, which afforded excellent visualization of the proximal femur. Next, a box osteotome was used to lateralize the proximal femur. A support merchandiser was then used to locate the femoral canal. Sequential broaching was then performed with appropriate size which afforded excellent fixation in the proximal femur. A trial was then placed with appropriate head and neck, and the hip was gently reduced with the aid of the [place] table. Fluoroscopy was then used to check position of the components, as well as to ensure equal leg lengths. The hip was then gently dislocated and the trials were then removed. Final implants were then impacted and the hip was again reduced. Final fluoroscopic x-rays confirmed that the components were in anatomic position, as well as equal leg lengths. The hip was also taken through range of motion, and found to be stable. The hip was then copiously irrigated with antibiotic solution with pulsatile lavage. The hip was then irrigated with Irrisept solution. The soft tissues were then injected with a ropivacaine solution. A second dose of 1 g of Tranexamic acid was also given intravenously. The fascia was then closed with 2-0 strata fix suture. The subcutaneous tissue was closed with 3-0 Vicryl. The subcuticular tissue was closed with 3-0 strata fix suture. The skin was then closed with Exofin skin glue. After the glue and dried, and Optifoam silver impregnated dressing was applied. The patient was then transferred to the recovery room in stable condition. The processing assistant MARGIE Medrano was required due to the complexity of surgery, and the need for skilled surgical rn for positioning, draping, exposure, retraction, and closure of the wound.
--- NOTE | 2022-02-16 13:07 | XR ---
EXAMINATION TYPE: XR Hip Limited RT DATE OF EXAM: 02/16/2022 COMPARISON: X-ray dated 01/08/2022 INDICATION: Postoperative TECHNIQUE: Single view of the right hip FINDINGS: Interval right total hip arthroplasty. No gross hardware complication with apparent good alignment of the metallic prosthesis. Acute postsurgical changes with soft tissue swelling and soft tissue gas. D egenerative changes of the symphysis pubis. IMPRESSION: As above.
--- NOTE | 2022-02-16 13:10 | FL ---
EXAMINATION TYPE: FL guidance operating room, XR Hip Limited RT DATE OF EXAM: 02/16/2022 CLINICAL HISTORY: Right hip arthroplasty TECHNIQUE: Fluoroscopic-guided right hip arthroplasty. COMPARISON: X-ray dated 01/08/2022 FINDINGS: Fluoroscopic guidance was provided during the procedure. A total of 24 seconds of fluorosc opic time was utilized during the procedure and 4 spot images were acquired. IMPRESSION: As Above.
[2022-02-16] MEDS: SODIUM CHLORIDE 0.9% 1,000 ML IV SCH (19:02)
[2022-02-16] MEDS: ASPIRIN 325 MG TAB PO SCH (21:18)
[2022-02-16] MEDS: SENNOSIDES-DOCUSATE SODIUM 1 EACH TAB PO SCH (21:18)
[2022-02-16] MEDS: HYDROcodone/APAP 7.5-325MG 1 EACH TAB PO PRN (21:19)
--- NOTE | 2022-02-16 22:22 | P.CONS ---
History of Present Illness - Reason for Consult Consult date: 02/16/22 medical management Requesting physician: Ellis Hastings - Chief Complaint post right total hip arthroplasty - History of Present Illness HISTORY OF PRESENT ILLNESS 86-year-old female one of Dr. Ramirez's with past medical history of mild memory loss, history of macular degeneration, osteoarthritis, incontinence, irritable bowel syndrome, hyperlipidemia, and worsening osteoarthritis who has been seen orthopedic for the last few years with severe pain and arthritis of the right knee with developed to have much worsening degenerative arthritis of the right hip become imperative a last 10 days patient become wheelchair bound at the time. Patient was seen Dr. Hastings was cleared for surgery and scheduled for elective right total hip arthroplasty which was done today successfully with no major complication. She was admitted to the floor afterward with her family in the room has been feeling well pain is well managed at this point patient is slightly with confuse has significant dry mouth, otherwise hemodynamically stable. REVIEW OF SYSTEMS Constitutional: No fever, no chills, no night sweats. No weight change. No weakness, fatigue or lethargy. No daytime sleepiness. EENT: No headache. No blurred vision or double vision, no loss of vision. No loss of Hearing, no ringing in the ears, no dizziness. No nasal drainage or congestion. No epistaxis. No sore throat. Lungs: No shortness of breath, cough, no sputum production. No wheezing. Cardiovascular: No chest pain, no lower extremity edema. No palpitations. No paroxysmal nocturnal dyspnea. No orthopnea. No lightheadedness or dizziness. No syncopal episodes. Abdominal: mild GERD along with irritable bowel syndrome but No abdominal pain. No nausea, vomiting. No diarrhea. No constipation. No bloody or tarry stools.. No loss of appetite. Genitourinary: No dysuria, increased frequency, urgency. No urinary retention. Musculoskeletal: No myalgias. No muscle weakness, no gait dysfunction, no frequent falls. No back pain. No neck pain.significant pain and arthritis of the right hip. Significant arthritis of the right knee as well. Integumentary: No wounds, no lesions. No rash or pruritus. No unusual bruising. No change in hair or nails. Neurologic: No aphasia. No facial droop. No change in mentation. No head injury. No headache. No paralysis. No paresthesia. Psychiatric: No depression. No anxiety. No mood swings.mild memory loss. Endocrine: No abnormal blood sugars. No weight change. No excessive sweating or thirst. No cold intolerance. SOCIAL HISTORY she smoked between age 18 and 51 about half pack, drink psychosocially, has been for over 20 years and live alone was slightly but help. FAMILY HISTORY Father a 66 from [place], mother 95 from old age, patient had 2 brother and 2 sister one of her sister from ovarian cancer. Patient has 3 children are all living and well. PHYSICAL EXAMINATION Gen: This is elderly laying in bed does not look in any respiratory distress. HEENT: Head is atraumatic, normocephalic. Pupils equal, round. Sclerae is anicteric. NECK: Supple. No JVD. No lymphadenopathy. No thyromegaly. LUNGS: Clear to auscultation. No wheezes or rhonchi. No intercostal retractions. HEART: Regular rate and rhythm. No murmur. ABDOMEN: Soft. Bowel sounds are present. No masses. No tenderness. EXTREMITIES: No pedal edema. No calf tenderness.incision in the right hip as an interior incision with no bleeding, had significant pain and discomfort with arthritis of the right knee. NEUROLOGICAL: Patient is awake, alert and oriented with slight confusion. Cranial nerves 2 through 12 are grossly intact. ASSESSMENT AND PLAN 1.post right total hip arthroplasty: Stable post surgery doing well hemodynamically stable at this point patient will be started PTOT, continue to watch patient pain to control her symptoms. 2 mild memory loss: Patient has not been on any medication still doing well and management help. 3 hyperlipidemia: Has been on Lipitor 10 mg a day we'll resume medication. 4 history of irritable bowel syndrome: Doing better lately still on Charley on as-needed basis. 5 recurrent UTI: Was on antibiotics recently and done well. 6 overflow incontinence: Has been doing well on oxybutynin. 7 recent UTI was treated in February 05 with Bactrim: Repeat UA tomorrow treat if needed. 8 stage II chronic kidney disease: GFR was at 57 continue hydration. 9 thrombocytosis: The platelet count was [id number]: Patient will be on anticoagulation at this pointspecially with aspirin. Watch for any sign and symptom blood clot. 10 GI prophylaxis: Patient be on Pepcid 20 mg daily. 11 DVT prophylaxis: Patient will continue prophylaxis per orthopedic protocol which is aspirin 325 mg twice a day. 12 CODE STATUS: no code 13 meeting with the family: 2 sons and [id number] where in the room, apparently patient will need limited more help with not be able to go back to her own housing setup she need more help with PTOT till she is slightly red independent to be able to go back home. Family is supportive of subacute rehab and apparently had address it with orthopedic. Dr. Hastings thank you much for the consult if I can be any further help to pl ease let me know. Past Medical History Past Medical History: Eye Disorder Additional Past Medical History / Comment(s): Macular degeneration - difficult to read or write well. Rt hip injury after a recent fall. Recent abn UA, began po AB 02/08/22. History of Any Multi-Drug Resistant Organisms: None Reported Past Surgical History: Cholecystectomy, Hysterectomy Past Anesthesia/Blood Transfusion Reactions: No Reported Reaction Past Psychological History: No Psychological Hx Reported Smoking Status: Never smoker Past Alcohol Use History: Occasional Additional Past Alcohol Use History / Comment(s): STARTED TO SMOKE AGE 18, QUIT AT AGE 51, SMOKED 1/2 PPD Past Drug Use History: None Reported - Past Family History Sister(s) Family Medical History: Cancer Additional Family Medical History / Comment(s): OVARIAN CANCER Medications and Allergies Home Medications Medication Instructions Recorded Confirmed Type Magnesium 200 mg PO DAILY 04/12/19 02/10/22 History Acetaminophen Tab [Tylenol Tab] 1,000 mg PO BID PRN 01/08/22 02/10/22 History Aspirin EC [Ecotrin Low Dose] 81 mg PO DAILY 01/08/22 02/10/22 History Atorvastatin [Lipitor] 10 mg PO DAILY 01/08/22 02/10/22 History Biotin 5 mg PO DAILY 01/08/22 02/10/22 History Calcium Carbonate [Calcium] 600 mg PO DAILY 01/08/22 02/10/22 History Dicyclomine [Bentyl] 10 mg PO DAILY 01/08/22 02/10/22 History Lutein 10 mg PO DAILY 01/08/22 02/10/22 History [place]-3 Fatty Acids/Fish Oil [Fish 1 cap PO DAILY 01/08/22 02/10/22 History Oil 1,000 mg Softgel] Oxybutynin ER [Ditropan Xl] 15 mg PO DAILY 01/08/22 02/10/22 History Sulfamethoxazole/Trimethoprim 1 each PO BID 02/10/22 02/10/22 History [Sulfamethoxazole-Tmp Ds Tablet] HYDROcodone/APAP 7.5-325MG [[place] 1 tab PO Q4H PRN 02/15/22 02/15/22 History 7.5-325] Aspirin 325 mg PO BID #60 tab 02/16/22 Rx HYDROcodone/APAP 7.5-325MG [[place] 1 - 2 tab PO Q6H PRN #32 tab 02/16/22 Rx 7.5-325] Ondansetron Odt [Zofran Odt] 1 tab PO Q8HR PRN #10 tab 02/16/22 Rx Sennosides [Senokot] 2 tab PO DAILY PRN #60 tablet 02/16/22 Rx Allergies Allergy/AdvReac Type Severity Reaction Status Date / Time No Known Allergies Allergy Verified 02/16/22 10:44 Physical Exam Vitals: Vital Signs Temp Pulse Pulse Resp BP BP Pulse Ox 02/16/22 17:55 97.7 F 60 18 103/49 90 L 02/16/22 17:15 74 16 88/52 95 02/16/22 15:30 64 16 97/52 97 02/16/22 15:00 63 16 99/55 100 02/16/22 14:30 57 L 16 97/52 100 02/16/22 14:15 57 L 16 98/57 100 02/16/22 14:00 60 16 92/53 100 02/16/22 13:45 58 L 16 92/51 100 02/16/22 13:30 58 L 16 88/50 100 02/16/22 13:15 58 L 16 94/52 100 02/16/22 13:00 58 L 16 100/55 100 02/16/22 12:45 62 16 101/56 100 02/16/22 12:30 97.4 F L 71 16 118/58 100 02/16/22 10:48 97.5 F L 86 18 136/67 95 Intake and Output 02/16/22 02/16/22 02/16/22 06:59 14:59 22:59 Intake Total 851 550 Output Total 150 Balance 701 550 Intake: IV 851 550 Output: Estimated Blood Loss 150 Other: Weight 49.2 kg 49.2 kg
[2022-02-17] MEDS: SODIUM CHLORIDE 0.9% 1,000 ML IV SCH (02:48)
[2022-02-17] MEDS: HYDROcodone/APAP 7.5-325MG 1 EACH TAB PO PRN (06:00)
[2022-02-17] MEDS ORDERED: NON FORMULARY DRUG (Biotin [Biotin] 5 MG Capsule) PO SCH (09:00)
[2022-02-17] MEDS: MAGNESIUM OXIDE 400 MG TAB PO SCH (09:04)
[2022-02-17] MEDS: FAMOTIDINE 20 MG TAB PO SCH (09:05)
[2022-02-17] MEDS: MELOXICAM 7.5 MG TAB PO SCH (09:05)
[2022-02-17] MEDS: CALCIUM CARBONATE 500 MG CHEWABLE PO SCH (09:05)
[2022-02-17] MEDS: OXYBUTYNIN 15 MG TAB.ER.24 PO SCH (09:05)
[2022-02-17] MEDS: DICYCLOMINE 10 MG CAP PO SCH (09:05)
[2022-02-17] MEDS: ATORVASTATIN 10 MG TAB PO SCH (09:06)
[2022-02-17] MEDS: ASPIRIN 325 MG TAB PO SCH ×2 (09:06→19:49)
[2022-02-17 09:11] LABS: Basophils # (A) 0.03 X 10*3/uL (0.00-0.10); Basophils % (A) 0.5 %; Eosinophils # (A) 0.18 X 10*3/uL (0.04-0.35); Eosinophils % (A) 2.8 %; HCT 30.6 % (37.2-46.3); HGB 9.4 g/dL (12.0-15.0); Immature Grans, Automated 0.5 %; Lymphocytes # (A) 0.74 X 10*3/uL (0.90-5.00); Lymphocytes % (A) 11.4 %; MCH 27.6 pg (27.0-32.0); MCHC 30.7 g/dL (32.0-37.0); Mean Platelet Volume 9.8 fL (9.5-12.2); Monocytes # (A) 0.71 X 10*3/uL (0.20-1.00); NRBC Per 100 WBC 0 /100 WBCS (0.0-0.0); Neutrophils # (A) 4.79 X 10*3/uL (1.80-7.70); Neutrophils % (A) 73.8 %; Platelet Count 514 X 10*3/uL (140-440); WBC 6.48 X 10*3/uL (4.50-10.00)
[2022-02-17 09:36] LABS: African American GFR (CKD) 76.8 (60.0-200.0); Albumin 2.8 g/dL (3.8-4.9); Albumin/Globulin Ratio 1.22 (1.60-3.17); Anion Gap 13.2 mmol/L (10.00-18.00); BUN/Creat Ratio 14.38 Ratio (12.00-20.00); Blood Urea Nitrogen 11.5 mg/dL (9.0-27.0); Calcium 8.5 mg/dL (8.7-10.3); Carbon Dioxide 19.8 mmol/L (20.0-27.5); Globulin 2.3 g/dL (1.6-3.3); Non-African American GFR(CKD) 66.3 (60.0-200.0); Potassium 4.8 mmol/L (3.5-5.5); Total Bilirubin 0.2 mg/dL (0.30-1.20); Total Protein 5.1 g/dL (6.2-8.2)
--- NOTE | 2022-02-17 10:11 | P.PN ---
Subjective Progress Note Date: 02/17/22 HISTORY OF PRESENT ILLNESS 86-year-old female one of Dr. Ramirez's with past medical history of mild memory loss, history of macular degeneration, osteoarthritis, incontinence, irritable bowel syndrome, hyperlipidemia, and worsening osteoarthritis who has been seen orthopedic for the last few years with severe pain and arthritis of the right knee with developed to have much worsening degenerative arthritis of the right hip become imperative a last 10 days patient become wheelchair bound at the time. Patient was seen Dr. Hastings was cleared for surgery and scheduled for elective right total hip arthroplasty which was done today successfully with no major complication. She was admitted to the floor afterward with her family in the room has been feeling well pain is well managed at this point patient is slightly with confuse has significant dry mouth, otherwise hemodynamically stable. 02/17: Patient is seen today on the [facility] floor. She states her pain is s omewhat controlled. She slept well during the night. She is currently getting ready to work with PT/OT. She has been afebrile, heart rate 80, blood pressure 107/61, pulse ox 95% on room air. Repeat blood work reveals WBC 6.4, hemoglobin 9.4, platelet count 514. Sodium 134, CO2 19.8, BUN 11 and creatinine 0.8. Total bilirubin 0.2, AST 32, ALT 26, alkaline phosphatase 131. Calcium 8.5. Albumin 2.8. Discharge plan is for subacute rehab and will eventually be going to [facility]. Patient is on aspirin full-strength twice daily for DVT prophylaxis. REVIEW OF SYSTEMS Constitutional: No fever, no chills, no night sweats. No weight change. No weakness, fatigue or lethargy. No daytime sleepiness. EENT: No headache. No blurred vision or double vision, no loss of vision. No loss of Hearing, no ringing in the ears, no dizziness. No nasal drainage or congestion. No epistaxis. No sore throat. Lungs: No shortness of breath, cough, no sputum production. No wheezing. Cardiovascular: No chest pain, no lower extremity edema. No palpitations. No paroxysmal nocturnal dyspnea. No orthopnea. No lightheadedness or dizziness. No syncopal episodes. Abdominal: mild GERD along with irritable bowel syndrome but No abdominal pain. No nausea, vomiting. No diarrhea. No constipation. No bloody or tarry stools.. No loss of appetite. Genitourinary: No dysuria, increased frequency, urgency. No urinary retention. Musculoskeletal: No myalgias. No muscle weakness, no gait dysfunction, no frequent falls. No back pain. No neck pain.significant pain and arthritis of the right hip. Significant arthritis of the right knee as well. Integumentary: No wounds, no lesions. No rash or pruritus. No unusual bruising. No change in hair or nails. Neurologic: No aphasia. No facial droop. No change in mentation. No head injury. No headache. No paralysis. No paresthesia. Psychiatric: No depression. No anxiety. No mood swings.mild memory loss. Endocrine: No abnormal blood sugars. No weight change. No excessive sweating or thirst. No cold intolerance. PHYSICAL EXAMINATION Gen: This is elderly sitting on edge of the bed bed does not look in any respiratory distress. HEENT: Head is atraumatic, normocephalic. Pupils equal, round. Sclerae is anicteric. NECK: Supple. No JVD. No lymphadenopathy. No thyromegaly. LUNGS: Clear to auscultation. No wheezes or rhonchi. No intercostal retractions. HEART: Regular rate and rhythm. No murmur. ABDOMEN: Soft. Bowel sounds are present. No masses. No tenderness. EXTREMITIES: No pedal edema. No calf tenderness.incision in the right hip as an interior incision with no bleeding, had significant pain and discomfort with arthritis of the right knee. NEUROLOGICAL: Patient is awake, alert and oriented with slight confusion. Cranial nerves 2 through 12 are grossly intact. ASSESSMENT AND PLAN 1.post right total hip arthroplasty 02/16: Stable post surgery doing well hemodynamically stable at this point patient will be started PTOT, continue to watch patient pain to control her symptoms. 2 mild memory loss: Patient has not been on any medication still doing well and management with help. 3 hyperlipidemia: Has been on Lipitor 10 mg a day we'll resume medication. 4 history of irritable bowel syndrome: Doing better lately still on Bentyl. 5 recurrent UTI: Was on antibiotics recently and done well. 6 overflow incontinence: Has been doing well on oxybutynin. 7 recent UTI was treated in February 05 with Bactrim: Repeat UA tomorrow treat if needed. 8 stage II chronic kidney disease: GFR was at 57 continue hydration. 9 thrombocytosis: The platelet count was [id number]: Patient will be on anticoagulation at this pointspecially with aspirin. Watch for any sign and symptom blood clot. 10 GI prophylaxis: Patient be on Pepcid 20 mg daily. 11 DVT prophylaxis: Patient will continue prophylaxis per orthopedic protocol which is aspirin 325 mg twice a day. 12 CODE STATUS: no code 13 meeting with the family: 2 sons and [id number] where in the room, apparently patient will need limited more help with not be able to go back to her own housing setup she need more help with PTOT till she is slightly red independent to be able to go back home. Family is supportive of subacute rehab and apparently had address it with orthopedic. Dr. Hastings thank you much for the consult if I can be any further help to please let me know. Impression and plan of care have been directed as dictated by the signing physician. Chikis Schwartz nurse practitioner acting as scribe for signing physician. Objective - Vital Signs Vital signs: Vital Signs Temp 97.6 F 02/17/22 07:11 Pulse 80 02/17/22 07:11 Resp 18 02/17/22 07:11 BP 107/61 02/17/22 07:11 Pulse Ox 95 02/17/22 07:11 Intake & Output 02/16/22 02/17/22 02/17/22 18:59 06:59 18:59 Intake Total 1401 596 Output Total 150 650 Balance 1251 -650 596 Weight 49.2 kg Intake: IV 1401 Oral 596 Output: Urine 650 Straight 650 Estimated Blood Loss 150 Other: # Voids 1 - Labs CBC & Chem 7: 02/17/22 04:17 02/17/22 04:17
--- NOTE | 2022-02-17 10:28 | P.PN ---
Subjective Progress Note Date: 02/17/22 This patient is an 86-year-old female who is status-post right total hip arthroplasty on 02/16/22. Today is postoperative day #1. The patient is seen and examined bedside. She is currently up to the bedside chair. She states the pain in her right hip is well controlled. She has no complaints or concerns at this time. She denies chest pain, shortness breath, nausea, vomiting, fevers, chills. Vital signs stable. Objective - Vital Signs Vital signs: Vital Signs Temp 97.6 F 02/17/22 07:11 Pulse 80 02/17/22 07:11 Resp 18 02/17/22 07:11 BP 107/61 02/17/22 07:11 Pulse Ox 95 02/17/22 07:11 Intake & Output 02/16/22 02/17/22 02/17/22 18:59 06:59 18:59 Intake Total 1401 596 Output Total 150 650 Balance 1251 -650 596 Weight 49.2 kg Intake: IV 1401 Oral 596 Output: Urine 650 Straight 650 Estimated Blood Loss 150 Other: # Voids 1 - Exam On examination, the patient is sitting up in the bedside chair in no apparent distress. She is alert and oriented 3. On inspection of the right hip, there is a clean, dry, and intact OptiForm dressing in place. There is no bleeding or drainage to the dressing. There is mild swelling of the thigh, the thigh is soft and compressible. Motor and sensory function is intact of the right lower extremity, she has good strength and [id number] of the right ankle and toes. The right lower extremity is warm and well-perfused. Calf is soft and nontender to palpation. - Labs CBC & Chem 7: 02/17/22 04:17 02/17/22 04:17 Labs: Abnormal Lab Results - Last 24 Hours (Table) 02/17/22 02/17/22 Range/Units 04:17 04:17 RBC 3.40 L (4.10-5.20) X 10*6/uL Hgb 9.4 L (12.0-15.0) g/dL Hct 30.6 L (37.2-46.3) % MCHC 30.7 L (32.0-37.0) g/dL Plt Count 514 H (140-440) X 10*3/uL Lymphocytes # 0.74 L (0.90-5.00) X 10*3/uL Sodium 134 L (135-145) mmol/L Carbon Dioxide 19.8 L (20.0-27.5) mmol/L Calcium 8.5 L (8.7-10.3) mg/dL Total Bilirubin 0.20 L (0.30-1.20) mg/dL Alkaline Phosphatase 131 H (41-126) U/L Total Protein 5.1 L (6.2-8.2) g/dL Albumin 2.8 L (3.8-4.9) g/dL Albumin/Globulin Ratio 1.22 L (1.60-3.17) g/dL Assessment and Plan Assessment: Status-post right total hip arthroplasty on 02/16/22. Post-operative day #1. Plan: - Patient may weight-bear as tolerated on the right lower extremity with a walker. - Physical therapy for gait and balance training. - Keep Optifoam dressing in place. - Pain management as needed. - Aspirin 325mg BID for DVT prophylaxis. - 2 doses of post-operative antibiotics complete. - Internal medicine for cherri-operative medical management. - Case management consulted for discharge planning. Anticipate discharge to subacute rehab.
[2022-02-17 11:37] LABS: Appearance,Urine Clear (Clear); Bacteria,Urine Rare /hpf; Bilirubin,Urine Negative (Negative); Blood,Urine Negative (Negative); Color,Urine Yellow; Glucose,Urine (UA) Negative (Negative); Hyaline Casts,Urine 4 /lpf (0-2); Ketones,Urine 1+ (Negative); Leukocyte Esterase,Urine Trace (Negative); Mucus,Urine Rare /hpf; Nitrite,Urine Negative (Negative); PH, Urine 6.5 (5.0-8.0); Protein,Urine Negative (Negative); RBC,Urine 3 /hpf (0-5); Specific Gravity,Urine 1.016 (1.001-1.035); Squamous Epithelial Cell,Urine <1 /hpf (0-4); Urobilinogen,Urine <2.0 mg/dL (<2.0); WBC,Urine 5 /hpf (0-5)
[2022-02-17] MEDS: ACETAMINOPHEN TAB 325 MG TAB PO PRN (19:48)
[2022-02-17] MEDS: SENNOSIDES-DOCUSATE SODIUM 1 EACH TAB PO SCH (19:49)
[2022-02-17 21:08] LABS: Glucose,Whole Blood 288 mg/dL (75-99)
[2022-02-18] MEDS: ACETAMINOPHEN TAB 325 MG TAB PO PRN ×2 (02:05→21:48)
[2022-02-18] MEDS: ATORVASTATIN 10 MG TAB PO SCH (08:56)
[2022-02-18] MEDS: CALCIUM CARBONATE 500 MG CHEWABLE PO SCH (08:56)
[2022-02-18] MEDS: FAMOTIDINE 20 MG TAB PO SCH (08:56)
[2022-02-18] MEDS: MAGNESIUM OXIDE 400 MG TAB PO SCH (08:56)
[2022-02-18] MEDS: OXYBUTYNIN 15 MG TAB.ER.24 PO SCH (08:56)
[2022-02-18] MEDS: MELOXICAM 7.5 MG TAB PO SCH (08:56)
[2022-02-18] MEDS: DICYCLOMINE 10 MG CAP PO SCH (08:56)
[2022-02-18] MEDS: ASPIRIN 325 MG TAB PO SCH ×2 (08:56→21:48)
--- NOTE | 2022-02-18 10:18 | P.PN ---
Subjective Progress Note Date: 02/18/22 This is a 86-year-old female who is status post right total hip arthroplasty. This is postoperative day #2 and patient is seen and evaluated at bedside today. Patient has been confused and has a nurse sitter with her. Objective - Vital Signs Vital signs: Vital Signs Temp 97.4 F L 02/18/22 08:55 Pulse 72 02/18/22 08:55 Resp 19 02/18/22 08:55 BP 101/62 02/18/22 08:55 Pulse Ox 95 02/18/22 08:55 Intake & Output 02/17/22 02/18/22 02/18/22 18:59 06:59 18:59 Intake Total 776 Balance 776 Intake: Oral 776 Other: # Voids 2 2 1 # Bowel Movements 1 - Exam Vital signs are stable. Patient is resting comfortably. Calf is soft and nontender to palpation. Dressing is clean, dry, and intact. Patient has full foot and ankle motion without pain or difficulty. Sensation intact. Neurovascular status and circulatory status are intact. - Labs CBC & Chem 7: 02/17/22 04:17 02/17/22 04:17 Labs: Abnormal Lab Results - Last 24 Hours (Table) 02/17/22 02/17/22 Range/Units 11:15 21:06 POC Glucose (mg/dL) 288 H (75-99) mg/dL Urine Ketones 1+ H (Negative) Ur Leukocyte Esterase Trace H (Negative) Urine Bacteria Rare H (None) /hpf Hyaline Casts 4 H (0-2) /lpf Urine Mucus Rare H (None) /hpf Assessment and Plan (1) Osteoarthritis of right hip Current Visit: Yes Status: Acute Code(s): M16.11 - UNILATERAL PRIMARY OSTEOARTHRITIS, RIGHT HIP SNOMED Code(s): 908292828485963 (2) S/P total hip arthroplasty Current Visit: Yes Status: Acute Code(s): Z96.649 - PRESENCE OF UNSPECIFIED ARTIFICIAL HIP JOINT SNOMED Code(s): 592408002236 Plan: Continue routine postop care and pain control. Continue anticoagulation. Weightbearing as tolerated with a walker. Leave dressing in place for 7 days. Appreciate input from medicine. Anticipate discharge to [facility] in the next 24-48 hours.
--- NOTE | 2022-02-18 11:55 | P.PN ---
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 Patient was seen Dr. Hastings was cleared for surgery and scheduled for elective right total hip arthroplasty which was done today successfully with no major complication. She was admitted to the floor afterward with her family in the room has been feeling well pain is well managed at this point patient is slightly with confuse has significant dry mouth, otherwise hemodynamically stable. 02/17: Patient is seen today on the [facility] floor. She states her pain is s omewhat controlled. She slept well during the night. She is currently getting ready to work with PT/OT. She has been afebrile, heart rate 80, blood pressure 107/61, pulse ox 95% on room air. Repeat blood work reveals WBC 6.4, hemoglobin 9.4, platelet count 514. Sodium 134, CO2 19.8, BUN 11 and creatinine 0.8. Total bilirubin 0.2, AST 32, ALT 26, alkaline phosphatase 131. Calcium 8.5. Albumin 2.8. Discharge plan is for subacute rehab and will eventually be going to [facility]. Patient is on aspirin full-strength twice daily for DVT prophylaxis. 02/18: Patient developed significant confusion requiring a sitter. This is most likely acute delirium from medications during surgery. All narcotics discontinued. She is sleeping awakes easily to verbal stimuli. She is able to answer questions appropriately and appears to be oriented to person and place but mild confusion remains. REVIEW OF SYSTEMS Constitutional: No fever, no chills, no night sweats. No weight change. No weakness, fatigue or lethargy. No daytime sleepiness. EENT: No headache. No blurred vision or double vision, no loss of vision. No loss of Hearing, no ringing in the ears, no dizziness. No nasal drainage or congestion. No epistaxis. No sore throat. Lungs: No shortness of breath, cough, no sputum production. No wheezing. Cardiovascular: No chest pain, no lower extremity edema. No palpitations. No paroxysmal nocturnal dyspnea. No orthopnea. No lightheadedness or dizziness. No syncopal episodes. Abdominal: mild GERD along with irritable bowel syndrome but No abdominal pain. No nausea, vomiting. No diarrhea. No constipation. No bloody or tarry stools.. No loss of appetite. Genitourinary: No dysuria, increased frequency, urgency. No urinary retention. Musculoskeletal: No myalgias. No muscle weakness, no gait dysfunction, no frequent falls. No back pain. No neck pain.significant pain and arthritis of the right hip. Significant arthritis of the right knee as well. Integumentary: No wounds, no lesions. No rash or pruritus. No unusual bruising. No change in hair or nails. Neurologic: No aphasia. No facial droop. No change in mentation. No head injury. No headache. No paralysis. No paresthesia. Psychiatric: No depression. No anxiety. No mood swings.mild memory loss. Endocrine: No abnormal blood sugars. No weight change. No excessive sweating or thirst. No cold intolerance. PHYSICAL EXAMINATION Gen: This is elderly sitting on edge of the bed bed does not look in any respiratory distress. HEENT: Head is atraumatic, normocephalic. Pupils equal, round. Sclerae is anicteric. NECK: Supple. No JVD. No lymphadenopathy. No thyromegaly. LUNGS: Clear to auscultation. No wheezes or rhonchi. No intercostal re tractions. HEART: Regular rate and rhythm. No murmur. ABDOMEN: Soft. Bowel sounds are present. No masses. No tenderness. EXTREMITIES: No pedal edema. No calf tenderness.incision in the right hip as an interior incision with no bleeding, had significant pain and discomfort with arthritis of the right knee. NEUROLOGICAL: Patient is awake, alert and oriented with slight confusion. Cranial nerves 2 through 12 are grossly intact. ASSESSMENT AND PLAN 1.post right total hip arthroplasty 02/16: Stable post surgery doing well hemodynamically stable at this point patient will be started PTOT, continue to watch patient pain to control her symptoms. 2 mild memory loss: Patient has not been on any medication still doing well and management with help. 3 hyperlipidemia: Has been on Lipitor 10 mg a day we'll resume medication. 4 history of irritable bowel syndrome: Doing better lately still on Bentyl. 5 recurrent UTI: Was on antibiotics recently and done well. 6 overflow incontinence: Has been doing well on oxybutynin. 7 recent UTI was treated in February 05 with Bactrim. 8 stage II chronic kidney disease: GFR was at 57 continue hydration. 9 thrombocytosis: The platelet count was [id number]: Patient will be on anticoagulation at this point specially with aspirin. Watch for any sign and symptom blood clot. 10 GI prophylaxis: Patient be on Pepcid 20 mg daily. 11 DVT prophylaxis: Patient will continue prophylaxis per orthopedic protocol which is aspirin 325 mg twice a day. 12 acute delirium secondary to surgery, hospitalization, medications. Patient has mine safety engineer at bedside. Discontinue all narcotics. CODE STATUS: no code DISCHARGE PLAN most likely on Tuesday Impression and plan of care have been directed as dictated by the signing physic ian. Chikis Schwartz nurse practitioner acting as scribe for signing physician. Objective - Vital Signs Vital signs: Vital Signs Temp 97.6 F 02/18/22 02:03 Pulse 87 02/18/22 02:03 Resp 20 02/18/22 02:03 BP 131/63 02/18/22 02:03 Pulse Ox 95 02/18/22 02:03 Intake & Output 02/17/22 02/18/22 02/18/22 18:59 06:59 18:59 Intake Total 776 Balance 776 Intake: Oral 776 Other: # Voids 2 2 - Labs CBC & Chem 7: 02/17/22 04:17 02/17/22 04:17 Labs: Abnormal Lab Results - Last 24 Hours (Table) 02/17/22 02/17/22 02/17/22 Range/Units 04:17 04:17 11:15 RBC 3.40 L (4.10-5.20) X 10*6/uL Hgb 9.4 L (12.0-15.0) g/dL Hct 30.6 L (37.2-46.3) % MCHC 30.7 L (32.0-37.0) g/dL Plt Count 514 H (140-440) X 10*3/uL Lymphocytes # 0.74 L (0.90-5.00) X 10*3/uL Sodium 134 L (135-145) mmol/L Carbon Dioxide 19.8 L (20.0-27.5) mmol/L POC Glucose (mg/dL) (75-99) mg/dL Calcium 8.5 L (8.7-10.3) mg/dL Total Bilirubin 0.20 L (0.30-1.20) mg/dL Alkaline Phosphatase 131 H (41-126) U/L Total Protein 5.1 L (6.2-8.2) g/dL Albumin 2.8 L (3.8-4.9) g/dL Albumin/Globulin Ratio 1.22 L (1.60-3.17) g/dL Urine Ketones 1+ H (Negative) Ur Leukocyte Esterase Trace H (Negative) Urine Bacteria Rare H (None) /hpf Hyaline Casts 4 H (0-2) /lpf Urine Mucus Rare H (None) /hpf 02/17/22 Range/Units 21:06 RBC (4.10-5.20) X 10*6/uL Hgb (12.0-15.0) g/dL Hct (37.2-46.3) % MCHC (32.0-37.0) g/dL Plt Count (140-440) X 10*3/uL Lymphocytes # (0.90-5.00) X 10*3/uL Sodium (135-145) mmol/L Carbon Dioxide (20.0-27.5) mmol/L POC Glucose (mg/dL) 288 H (75-99) mg/dL Calcium (8.7-10.3) mg/dL Total Bilirubin (0.30-1.20) mg/dL Alkaline Phosphatase (41-126) U/L Total Protein (6.2-8.2) g/dL Albumin (3.8-4.9) g/dL Albumin/Globulin Ratio (1.60-3.17) g/dL Urine Ketones (Negative) Ur Leukocyte Esterase (Negative) Urine Bacteria (None) /hpf Hyaline Casts (0-2) /lpf Urine Mucus (None) /hpf
[2022-02-18] MEDS: SENNOSIDES-DOCUSATE SODIUM 1 EACH TAB PO SCH (21:48)
[2022-02-19 07:43] VITALS: BP 112/66; PULSE 71; RESP 16; TEMP 97.8
[2022-02-19] MEDS: ASPIRIN 325 MG TAB PO SCH (08:48)
[2022-02-19] MEDS: DICYCLOMINE 10 MG CAP PO SCH (08:48)
[2022-02-19] MEDS: ACETAMINOPHEN TAB 325 MG TAB PO PRN (08:48)
[2022-02-19] MEDS: OXYBUTYNIN 15 MG TAB.ER.24 PO SCH (08:49)
[2022-02-19] MEDS: FAMOTIDINE 20 MG TAB PO SCH (08:49)
[2022-02-19] MEDS: MELOXICAM 7.5 MG TAB PO SCH (08:49)
[2022-02-19] MEDS: MAGNESIUM OXIDE 400 MG TAB PO SCH (08:49)
[2022-02-19] MEDS: CALCIUM CARBONATE 500 MG CHEWABLE PO SCH (08:49)
[2022-02-19] MEDS: ATORVASTATIN 10 MG TAB PO SCH (08:49)
[2022-02-19 09:18] LABS: Basophils # (A) 0.03 X 10*3/uL (0.00-0.10); Basophils % (A) 0.3 %; Eosinophils # (A) 0.31 X 10*3/uL (0.04-0.35); Eosinophils % (A) 3.1 %; HCT 28.8 % (37.2-46.3); Immature Grans, Automated 0.4 %; Lymphocytes # (A) 0.85 X 10*3/uL (0.90-5.00); Lymphocytes % (A) 8.5 %; MCH 27.8 pg (27.0-32.0); MCHC 31.3 g/dL (32.0-37.0); MCV 88.9 fL (80.0-97.0); Mean Platelet Volume 9.7 fL (9.5-12.2); Monocytes # (A) 0.81 X 10*3/uL (0.20-1.00); Monocytes % (A) 8.1 %; NRBC Per 100 WBC 0 /100 WBCS (0.0-0.0); Neutrophils # (A) 7.94 X 10*3/uL (1.80-7.70); Neutrophils % (A) 79.6 %; Platelet Count 593 X 10*3/uL (140-440); RBC 3.24 X 10*6/uL (4.10-5.20); RDW 13.9 % (11.5-14.5); WBC 9.98 X 10*3/uL (4.50-10.00)
--- NOTE | 2022-02-19 11:00 | P.PN ---
Subjective Progress Note Date: 02/19/22 HISTORY OF PRESENT ILLNESS 86-year-old female one of Dr. Ramirez's with past medical history of mild memory loss, history of macular degeneration, osteoarthritis, incontinence, irritable bowel syndrome, hyperlipidemia, and worsening osteoarthritis who has been seen orthopedic for the last few years with severe pain and arthritis of the right knee with developed to have much worsening degenerative arthritis of the right hip become imperative a last 10 days patient become wheelchair bound at the time. Patient was seen Dr. Hastings was cleared for surgery and scheduled for elective right total hip arthroplasty which was done today successfully with no major complication. She was admitted to the floor afterward with her family in the room has been feeling well pain is well managed at this point patient is slightly with confuse has significant dry mouth, otherwise hemodynamically stable. 02/17: Patient is seen today on the [facility] floor. She states her pain is s omewhat controlled. She slept well during the night. She is currently getting ready to work with PT/OT. She has been afebrile, heart rate 80, blood pressure 107/61, pulse ox 95% on room air. Repeat blood work reveals WBC 6.4, hemoglobin 9.4, platelet count 514. Sodium 134, CO2 19.8, BUN 11 and creatinine 0.8. Total bilirubin 0.2, AST 32, ALT 26, alkaline phosphatase 131. Calcium 8.5. Albumin 2.8. Discharge plan is for subacute rehab and will eventually be going to [facility]. Patient is on aspirin full-strength twice daily for DVT prophylaxis. 02/18: Patient developed significant confusion requiring a sitter. This is most likely acute delirium from medications during surgery. All narcotics discontinued. She is sleeping awakes easily to verbal stimuli. She is able to answer questions appropriately and appears to be oriented to person and place but mild confusion remains. 02/19: Patient is awake alert and oriented, she does not have a sitter at the bedside. Confusion and mental status is significantly improved from yesterday. Patient did have mild memory loss prior to this episode. She is off all narcotics and seems to be doing well. Patient has been afebrile, HR 70-94, BP 112/66, pulse ox 95% on room air. Repeat blood work reveals WBC 9.9, hemoglobin 9.0, platelet count 593. Coronal virus PCR not detected. Patient is scheduled for discharge to [facility] today once arrangements are completed. Medication reconciliation has been reviewed for discharge. REVIEW OF SYSTEMS Constitutional: No fever, no chills, no night sweats. No weight change. No weakness, fatigue or lethargy. No daytime sleepiness. EENT: No headache. No blurred vision or double vision, no loss of vision. No loss of Hearing, no ringing in the ears, no dizziness. No nasal drainage or congestion. No epistaxis. No sore throat. Lungs: No shortness of breath, cough, no sputum production. No wheezing. Cardiovascular: No chest pain, no lower extremity edema. No palpitations. No paroxysmal nocturnal dyspnea. No orthopnea. No lightheadedness or dizziness. No syncopal episodes. Abdominal: mild GERD along with irritable bowel syndrome but No abdominal pain. No nausea, vomiting. No diarrhea. No constipation. No bloody or tarry stools.. No loss of appetite. Genitourinary: No dysuria, increased frequency, urgency. No urinary retention. Musculoskeletal: No myalgias. No muscle weakness, no gait dysfunction, no frequent falls. No back pain. No neck pain.significant pain and arthritis of the right hip. Significant arthritis of the right knee as well. Integumentary: No wounds, no lesions. No rash or pruritus. No unusual bruising. No change in hair or nails. Neurologic: No aphasia. No facial droop. Mental status is near baseline, con fusion improved. No head injury. No headache. No paralysis. No paresthesia. Psychiatric: No depression. No anxiety. No mood swings.mild memory loss. Endocrine: No abnormal blood sugars. No weight change. No excessive sweating or thirst. No cold intolerance. PHYSICAL EXAMINATION Gen: This is elderly sitting on edge of the bed bed does not look in any respiratory distress. HEENT: Head is atraumatic, normocephalic. Pupils equal, round. Sclerae is anicteric. NECK: Supple. No JVD. No lymphadenopathy. No thyromegaly. LUNGS: Clear to auscultation. No wheezes or rhonchi. No intercostal retractions. HEART: Regular rate and rhythm. No murmur. ABDOMEN: Soft. Bowel sounds are present. No masses. No tenderness. EXTREMITIES: No pedal edema. No calf tenderness.incision in the right hip as an interior incision with no bleeding, had significant pain and discomfort with arthritis of the right knee. NEUROLOGICAL: Patient is awake, alert and oriented. Cranial nerves 2 through 12 are grossly intact. ASSESSMENT AND PLAN 1.post right total hip arthroplasty 02/16: Stable post surgery doing well hemodynamically stable at this point patient will be started PTOT, continue to watch patient pain to control her symptoms. 2 mild memory loss: Patient has not been on any medication still doing well and management with help. 3 hyperlipidemia: Has been on Lipitor 10 mg a day we'll resume medication. 4 history of irritable bowel syndrome: Doing better lately still on Bentyl. 5 recurrent UTI: Was on antibiotics recently and done well. 6 overflow incontinence: Has been doing well on oxybutynin. 7 recent UTI was treated in February 05 with Bactrim. 8 stage II chronic kidney disease: GFR was at 57 continue hydration. 9 thrombocytosis: The platelet count was 950312: Patient will be on anticoagulation at this point specially with aspirin. Watch for any sign and symptom blood clot. 10 GI prophylaxis: Patient be on Pepcid 20 mg daily. 11 DVT prophylaxis: Patient will continue prophylaxis per orthopedic protocol which is aspirin 325 mg twice a day. 12 acute delirium secondary to surgery, hospitalization, medications. Patient has loss prevention/safety district manager at bedside. Discontinue all narcotics. CODE STATUS: no code DISCHARGE PLAN [facility] Impression and plan of care have been directed as dictated by the signing physician. Chikis Schwartz nurse practitioner acting as scribe for signing physician. Objective - Vital Signs Vital signs: Vital Signs Temp 97.8 F 02/19/22 07:43 Pulse 71 02/19/22 07:43 Resp 16 02/19/22 07:43 BP 112/66 02/19/22 07:43 Pulse Ox 95 02/19/22 07:43 Intake & Output 02/18/22 02/19/22 02/19/22 18:59 06:59 18:59 Other: Voiding Method Bedside Commode # Voids 4 1 # Bowel Movements 3 - Labs CBC & Chem 7: 02/19/22 05:04 02/17/22 04:17
--- NOTE | 2022-02-19 11:53 | P.DS ---
Providers Date of admission: 02/18/22 09:00 Expected date of discharge: 02/19/22 Attending physician: Ellis Hastings Consults: 02/16/22 10:43 Consult Physician Routine Consulting Provider: Rakesh Thomas Reason/Comments: medical management Do you want consulting provider notified?: Yes Primary care physician: Margot Ramirez - Discharge Diagnosis(es) (1) Osteoarthritis of right hip Current Visit: Yes Status: Acute (2) S/P total hip arthroplasty Current Visit: Yes Status: Acute Hospital Course: This is a 86-year-old female with known history of degenerative arthritis of the right hip. The patient presented for evaluation as an outpatient. After discussion and consideration patient elects to proceed with total hip arthroplasty. The patient is seen preoperatively by Dr. Hastings and medically cleared for surgery by their primary care physician. Patient is admitted to [facility] on 02/16/2022 for total hip arthroplasty. The procedure is performed without complication or sequelae. The patient is doing well postoperatively. Labs and vital signs are stable on day of discharge. On day of discharge patient's hip incision is healing well. There is minimal erythema. There is no drainage noted at this time. There is minimal soft tissue swelling to the hip and thigh. Patient has full foot and ankle motion without difficulty or pain. Calf is soft and nontender to palpation. Neurovascular status to the right lower extremity is intact. Patient is discharged to rehab in good condition. Opioid start talking form is reviewed and signed. Please see med rec for accurate list of home medications. Plan - Discharge Summary Discharge Rx Participant: Yes New Discharge Prescriptions: New Sennosides [Senokot] 2 tab PO DAILY PRN #60 tablet PRN Reason: Constipation Aspirin 325 mg PO BID #60 tab Ondansetron Odt [Zofran Odt] 1 tab PO Q8HR PRN #10 tab PRN Reason: Nausea Magnesium Hydroxide [Milk of Magnesia Concentrate] 2,400 mg PO DAILY PRN ml PRN Reason: Constipation Famotidine [Pepcid] 20 mg PO DAILY tab Continue Magnesium 200 mg PO DAILY Lutein 10 mg PO DAILY Calcium Carbonate [Calcium] 600 mg PO DAILY Acetaminophen Tab [Tylenol] 1,000 mg PO BID PRN PRN Reason: Pain Oxybutynin ER [Ditropan Xl] 15 mg PO DAILY Dicyclomine [Bentyl] 10 mg PO DAILY Atorvastatin [Lipitor] 10 mg PO DAILY [place]-3 Fatty Acids/Fish Oil [Fish Oil 1,000 mg Softgel] 1 cap PO DAILY Biotin 5 mg PO DAILY Discontinued Aspirin EC [Ecotrin Low Dose] 81 mg PO DAILY Sulfamethoxazole/Trimethoprim [Sulfamethoxazole-Tmp Ds Tablet] 1 each PO BID HYDROcodone/APAP 7.5-325MG [[place] 7.5-325] 1 tab PO Q4H PRN PRN Reason: Pain Discharge Medication List Magnesium 200 mg PO DAILY 04/12/19 [History] Acetaminophen Tab [Tylenol] 1,000 mg PO BID PRN 01/08/22 [History] Atorvastatin [Lipitor] 10 mg PO DAILY 01/08/22 [History] Biotin 5 mg PO DAILY 01/08/22 [History] Calcium Carbonate [Calcium] 600 mg PO DAILY 01/08/22 [History] Dicyclomine [Bentyl] 10 mg PO DAILY 01/08/22 [History] Lutein 10 mg PO DAILY 01/08/22 [History] [place]-3 Fatty Acids/Fish Oil [Fish Oil 1,000 mg Softgel] 1 cap PO DAILY 01/08/22 [History] Oxybutynin ER [Ditropan Xl] 15 mg PO DAILY 01/08/22 [History] Aspirin 325 mg PO BID #60 tab 02/16/22 [Rx] Ondansetron Odt [Zofran Odt] 1 tab PO Q8HR PRN #10 tab 02/16/22 [Rx] Sennosides [Senokot] 2 tab PO DAILY PRN #60 tablet 02/16/22 [Rx] Famotidine [Pepcid] 20 mg PO DAILY tab 02/19/22 [Rx] Magnesium Hydroxide [Milk of Magnesia Concentrate] 2,400 mg PO DAILY PRN ml 02/19/22 [Rx] Follow up Appointment(s)/Referral(s): Margot Ramirez [Primary Care Provider] - 1 Week (after discharge from [facility]) Ellis Hastings DO [Doctor of Osteopathic Medicine] - 03/03/22 2:20 pm Activity/Diet/Wound Care/Special Instructions: Weightbearing as tolerated with walker. Leave dressing intact. Dressing may be removed by home care nurse or by patient in 7 days. Then change dressing twice daily until follow up. May shower with initial dressing intact and after removal. If dressing become saturated, please remove. Please take aspirin 325mg twice daily for 30 days to prevent blood clots. Recommend use of compression stockings daily until follow up to help prevent swelling and blood clots. May remove at night before sleeping. Please follow-up with [facility] in 2 weeks and call with any questions or concerns, . Discharge Disposition: TRANSFER TO SNF/ECF
== END 2022-02-19 14:30 ==
LOC: OR 10:11 → 4SSUR 12:25 → OR 02-18 08:46 → 4SSUR 02-18 09:00
PROVIDERS: ADMIT Orthopaedic Surgery; ATTEND Orthopaedic Surgery
DX: M16.11 Unilateral primary osteoarthritis, right hip (principal); M51.36 Other intervertebral disc degeneration, lumbar region; E78.5 Hyperlipidemia, unspecified; H35.30 Unspecified macular degeneration; S32.491D Other specified fracture of right acetabulum, subsequent encounter for fracture with routine healing; W19.XXXD Unspecified fall, subsequent encounter; Z20.822 Contact with and (suspected) exposure to COVID-19; Z79.82 Long term (current) use of aspirin; Z79.899 Other long term (current) drug therapy; Z97.3 Presence of spectacles and contact lenses; Z90.49 Acquired absence of other specified parts of digestive tract; Z87.891 Personal history of nicotine dependence; Z91.81 History of falling; Z83.3 Family history of diabetes mellitus; Z83.49 Family history of other endocrine, nutritional and metabolic diseases; Z82.49 Family history of ischemic heart disease and other diseases of the circulatory system; Z84.89 Family history of other specified conditions
CPT/HCPCS: 97530 ×4; 97161; 97166; 86900; 86901; 88305; 80053; 85025 ×2; 86850; 81001; 88311; 87635; 73501; 27130; G0378 ×2; C1776; J2250; J1200; J0690 ×3; J2405; J3010; J2795; J2370; J2704; J1170

== ENCOUNTER 2023-02-27 16:53 | Inpatient (IN) | payer MEDICARE ==
--- NOTE | 2023-02-27 17:33 | ED ---
General Adult HPI - General Chief complaint: Extremity Injury, Lower Stated complaint: Fall Time Seen by Provider: 02/27/23 16:58 Source: patient, EMS, RN notes reviewed, old records reviewed Mode of arrival: EMS Limitations: no limitations - History of Present Illness Initial comments: 87-year-old female presents with fall while using the toilet. Patient fell onto her right hip and was unable to stand. She had shortening of the right lower extremity and was transported by paramedics. She denies head or neck trauma. No chest or abdominal pain. Patient had right total hip replacement done in February 2022 - Related Data Home Medications Medication Instructions Recorded Confirmed Magnesium 200 mg PO DAILY 04/12/19 02/10/22 Acetaminophen Tab [Tylenol] 1,000 mg PO BID PRN 01/08/22 02/10/22 Atorvastatin [Lipitor] 10 mg PO DAILY 01/08/22 02/10/22 Biotin 5 mg PO DAILY 01/08/22 02/10/22 Calcium Carbonate [Calcium] 600 mg PO DAILY 01/08/22 02/10/22 Dicyclomine [Bentyl] 10 mg PO DAILY 01/08/22 02/10/22 Lutein 10 mg PO DAILY 01/08/22 02/10/22 [place]-3 Fatty Acids/Fish Oil [Fish 1 cap PO DAILY 01/08/22 02/10/22 Oil 1,000 mg Softgel] Oxybutynin ER [Ditropan Xl] 15 mg PO DAILY 01/08/22 02/10/22 Previous Rx's Medication Instructions Recorded Aspirin 325 mg PO BID #60 tab 02/16/22 Ondansetron Odt [Zofran Odt] 1 tab PO Q8HR PRN #10 tab 02/16/22 Sennosides [Senokot] 2 tab PO DAILY PRN #60 tablet 02/16/22 Famotidine [Pepcid] 20 mg PO DAILY tab 02/19/22 Magnesium Hydroxide [Milk of 2,400 mg PO DAILY PRN ml 02/19/22 Magnesia Concentrate] Allergies Allergy/AdvReac Type Severity Reaction Status Date / Time No Known Allergies Allergy Verified 02/27/23 17:06 Review of Systems ROS Statement: Those systems with pertinent positive or pertinent negative responses have been documented in the HPI. ROS Other: All systems not noted in ROS Statement are negative. Past Medical History Past Medical History: Eye Disorder Additional Past Medical History / Comment(s): macular degeneration - unable to read or write well. History of Any Multi-Drug Resistant Organisms: VRE Date of last positivie culture/infection: 06/11/22 MDRO Source:: Urine Past Surgical History: Cholecystectomy, Hysterectomy, Joint Replacement Additional Past Surgical History / Comment(s): Right hip replacement (2020) Past Anesthesia/Blood Transfusion Reactions: No Reported Reaction Past Psychological History: No Psychological Hx Reported Smoking Status: Never smoker Past Alcohol Use History: Occasional Past Drug Use History: None Reported - Past Family History Sister(s) Family Medical History: Cancer Additional Family Medical History / Comment(s): OVARIAN CANCER General Exam Limitations: no limitations General appearance: alert, in no apparent distress Head exam: Present: atraumatic, normocephalic Eye exam: Present: normal appearance, PERRL ENT exam: Present: normal exam Neck exam: Present: normal inspection. Absent: tenderness, meningismus Respiratory exam: Present: normal lung sounds bilaterally. Absent: respiratory distress, wheezes Cardiovascular Exam: Present: regular rate, normal rhythm GI/Abdominal exam: Present: soft. Absent: distended, tenderness, guarding Extremities exam: Present: other (Shortening of the right extremity relative to the left. Distal pulses intact, pain with range of motion at the hip). Absent: full ROM Neurological exam: Present: alert, oriented X3, CN II-XII intact. Absent: motor sensory deficit Psychiatric exam: Present: normal affect, normal mood Skin exam: Present: warm, dry, intact Course Vital Signs 02/27/23 02/27/23 16:56 18:32 Temperature 98.0 F Pulse Rate 78 88 Respiratory 16 Rate Blood Pressure 143/79 158/74 O2 Sat by Pulse 97 98 Oximetry - Reevaluation(s) Reevaluation #1: 02/27/23 17:20. Patient declines pain medication Medical Decision Making - Medical Decision Making Was pt. sent in by a medical professional or institution (, PA, PERINATOLOGY PHYSICIAN, urgent care, hospital, or [place] health care facility...) When possible be specific @ -No Did you speak to anyone other than the patient for history (EMS, parent, family, police, friend...)? What history was obtained from this source @ Patient's son who is at bedside and EMS Did you review nursing and triage notes (agree or disagree)? Why? @ -I reviewed and agree with nursing and triage notes Were old charts reviewed (outside hosp., previous admission, EMS record, old EKG, old radiological studies, urgent care reports/EKG's, [place] health care facility records)? Report findings @ -Reviewed previous surgical notes regarding right total hip replacement Differential Diagnosis (chest pain, altered mental status, abdominal pain women, abdominal pain men, vaginal bleeding, weakness, fever, dyspnea, syncope, he adache, dizziness, GI bleed, back pain, seizure, CVA, palpatations, mental health, musculoskeletal)? @ -Traumatic injury including pelvic fracture, hip fracture, hip dislocation EKG interpreted by me (3pts min.). @ -As above X-rays interpreted by me (1pt min.). @ -X-rays reviewed including the right femur and right hip showing a periprosthetic fracture of the proximal femur CT interpreted by me (1pt min.). @ -None done U/S interpreted by me (1pt. min.). @ -None done What testing was considered but not performed or refused? (CT, X-rays, U/S, labs)? Why? @ -None What meds were considered but not given or refused? Why? @ -None Did you discuss the management of the patient with other professionals (professionals i.e. , PA, PERINATOLOGY PHYSICIAN, lab, RT, psych nurse, social services technician, materials planner/production planner, teacher, custom protection officer, counter caser)? Give summary @ -Discussed with Dr. Ruffin covering for orthopedics Was smoking cessation discussed for >3mins.? @ -No Was critical care preformed (if so, how long)? @ -No Were there social determinants of health that impacted care today? How? (Homelessness, low income, unemployed, alcoholism, drug addiction, transportation, low edu. Level, literacy, decrease access to med. care, long term, rehab)? @ -No Was there de-escalation of care discussed even if they declined (Discuss DNR or withdrawal of care, Hospice)? DNR status @ -No What co-morbidities impacted this encounter? (DM, HTN, Smoking, COPD, CAD, Cancer, CVA, ARF, Chemo, Hep., AIDS, mental health diagnosis, sleep apnea, morbid obesity)? @ -Gait instability, memory impairment Was patient admitted / discharged? Hospital course, mention meds given and route, prescriptions, significant lab abnormalities, going to OR and other pe rtinent info. @ -87-year-old female status post fall while using the toilet. No head or neck trauma. No anticoagulation. Patient has shortening of the right lower extremity with minimal pain with range of motion. She does not require pain medication while in the emergency department she is quite comfortable as long she is not moving. X-ray shows a periprosthetic proximal femur fracture on the right. Case discussed with orthopedics who will admit, internal medicine on co nsult. Undiagnosed new problem with uncertain prognosis? @ -No Drug Therapy requiring intensive monitoring for toxicity (Heparin, Nitro, Insuli n, Cardizem)? @ -No Were any procedures done? @ -No Diagnosis/symptom? @ Right proximal femur fracture Acute, or Chronic, or Acute on Chronic? @ -Acute Uncomplicated (without systemic symptoms) or Complicated (systemic symptoms)? @ -Complicated Side effects of treatment? @ -No Exacerbation, Progression, or Severe Exacerbation? @ -No Poses a threat to life or bodily function? How? (Chest pain, USA, MS, pneumonia, PE, COPD, DKA, ARF, appy, cholecystitis, CVA, Diverticulitis, Homicidal, Suicidal, threat to staff... and all critical care pts) @ -Yes, and mobility, deconditioning, pneumonia, sepsis. - Lab Data Result diagrams: 02/27/23 17:54 02/27/23 17:54 Disposition Clinical Impression: Yessi-prosthetic femoral shaft fracture Disposition: ADMITTED IP TO THIS HOSP Condition: Stable Is patient prescribed a controlled substance at d/c from ED?: No Time of Disposition: 18:19
--- NOTE | 2023-02-27 17:34 | XR ---
EXAMINATION TYPE: XR Hip Complete RT, XR femur RT DATE OF EXAM: 02/27/2023 CLINICAL HISTORY: pain TECHNIQUE: AP and frogleg views of the right hip are obtained. AP and lateral views of the right fem ur are also submitted. COMPARISON: None. FINDINGS: Total right hip arthropathy is noted to be in place. There is fracture noted within the sub trochanteric region of the proximal right femur with displacement of approximately 7 mm. No additiona l fractures seen. Degenerative changes about the knee. IMPRESSION: 1. Obliquely oriented fracture subtrochanteric region proximal right femur.
--- NOTE | 2023-02-27 17:36 | XR ---
History EXAMINATION TYPE: XR chest 1V DATE OF EXAM: 02/27/2023 HISTORY: Shortness of breath. COMPARISON: 09/24/2017 TECHNIQUE: Single view of the chest is submitted. FINDINGS: Demonstrated are scattered senescent parenchymal change. There is no evidence for focal infiltrate. The heart is stable. Hilar and mediastinal structures are stable. Continued prominence of the aortic arch. Degenerative changes are seen of the dorsal spine. IMPRESSION: 1. Chronic changes without evidence for acute pulmonary disease.
[2023-02-27] MEDS ORDERED: ONDANSETRON 4 MG/2 ML VIAL IVP PRN (17:48)
[2023-02-27] MEDS ORDERED: NALOXONE 0.4 MG/ML 1 ML VIAL IV PRN (17:48)
[2023-02-27 18:16] LABS: Basophils % (A) 0 %; Eosinophils # (A) 0.1 k/uL (0-0.7); Eosinophils % (A) 1 %; HCT 40.5 % (34.0-46.0); Lymphocytes # (A) 0.7 k/uL (1.0-4.8); Lymphocytes % (A) 5 %; MCH 29.9 pg (25.0-35.0); MCHC 32.1 g/dL (31.0-37.0); MCV 93.1 fL (80.0-100.0); Mean Platelet Volume 7.7; Monocytes # (A) 0.6 k/uL (0-1.0); Monocytes % (A) 5 %; Neutrophils # (A) 11.9 k/uL (1.3-7.7); Neutrophils % (A) 88 %; Platelet Count 382 k/uL (150-450); RBC 4.35 m/uL (3.80-5.40); RDW 13.1 % (11.5-15.5); WBC 13.5 k/uL (3.8-10.6)
[2023-02-27 18:22] LABS: Partial Thromboplastin Time 23.9 sec (22.0-30.0); Prothrombin Time 10.4 sec (9.0-12.0)
[2023-02-27] MEDS: MORPHINE SULFATE 4 MG/ML SYRINGE IV PRN (18:35)
[2023-02-27] MEDS: SODIUM CHLORIDE 0.9% 1,000 ML IV SCH (18:36)
[2023-02-27 18:47] LABS: Albumin 4.6 g/dL (3.5-5.0); Calcium 9.6 mg/dL (8.4-10.2); Potassium 4.6 mmol/L (3.5-5.1); Total Bilirubin 0.3 mg/dL (0.2-1.3); Total Protein 7.8 g/dL (6.3-8.2)
[2023-02-28] MEDS: MORPHINE SULFATE 4 MG/ML SYRINGE IV PRN (01:30)
[2023-02-28] MEDS: SODIUM CHLORIDE 0.9% 1,000 ML IV SCH ×2 (06:14→20:50)
[2023-02-28] MEDS ORDERED: bisacodyL 10 MG SUPP RECTAL PRN (10:23)
[2023-02-28] MEDS ORDERED: SENNOSIDES 8.6 MG TAB PO PRN (10:23)
--- NOTE | 2023-02-28 11:01 | P.HPOR ---
History of Present Illness H&P Date: 02/28/23 Chief Complaint: Right hip pain This is an 87-year-old female who presented to the emergency department yesterday after falling while getting up to the bathroom. She resides at an extended care facility currently. She just recently has been independent with ambulation about her room. She uses the walker for ambulation. She has history of total right hip arthroplasty 1 year ago. Family states that she has had difficulty becoming ambulatory since the surgery. Patient does have some dementia but is able to provide some history. She denies head injury. She has no complaint of headache or neck pain today. She denies injury to her upper extremities. The patient is admitted to our service for further evaluation and possible surgical intervention. The patient's son is present at bedside today. Past Medical History Past Medical History: Eye Disorder Additional Past Medical History / Comment(s): macular degeneration - unable to read or write well. History of Any Multi-Drug Resistant Organisms: VRE Date of last positivie culture/infection: 06/11/22 MDRO Source:: Urine Past Surgical History: Cholecystectomy, Hysterectomy, Joint Replacement Additional Past Surgical History / Comment(s): Right hip replacement (2020) Past Anesthesia/Blood Transfusion Reactions: No Reported Reaction Past Psychological History: No Psychological Hx Reported Smoking Status: Never smoker Past Alcohol Use History: Occasional Past Drug Use History: None Reported - Past Family History Sister(s) Family Medical History: Cancer Additional Family Medical History / Comment(s): OVARIAN CANCER Medications and Allergies Home Medications Medication Instructions Recorded Confirmed Type Magnesium 200 mg PO DAILY@1700 04/12/19 02/27/23 History Acetaminophen Tab [Tylenol] 1,000 mg PO BID@0800,209901/08/22 02/27/23 History Atorvastatin [Lipitor] 10 mg PO HS@209901/08/22 02/27/23 History Biotin 5 mg PO DAILY@169901/08/22 02/27/23 History Calcium Carbonate [Calcium] 600 mg PO DAILY@169901/08/22 02/27/23 History Dicyclomine [Bentyl] 10 mg PO DAILY@0800 01/08/22 02/27/23 History Lutein 10 mg PO DAILY@1700 01/08/22 02/27/23 History Oxybutynin ER [Ditropan Xl] 15 mg PO DAILY@0800 01/08/22 02/27/23 History Sennosides [Senokot] 2 tab PO DAILY PRN #60 tablet 02/16/22 02/27/23 Rx Acetaminophen [Tylenol Extra 1,000 mg PO BID PRN 02/27/23 02/27/23 History Strength] Aspirin 325 mg PO BID@0800,1700 02/27/23 02/27/23 History Baclofen [Lioresal] 10 mg PO BID PRN 02/27/23 02/27/23 History Clobetasol Propionate [Temovate 1 applic TOPICAL BID 02/27/23 02/27/23 History 0.05% Cream] Ensure Enlive 237 ml PO TID@0800,1200,1700 02/27/23 02/27/23 History Famotidine [Pepcid] 20 mg PO DAILY@0800 02/27/23 02/27/23 History Fish Oil/Dha/Epa [Fish Oil 1,200 1 cap PO DAILY@1700 02/27/23 02/27/23 History mg Fish Oil] Mag Hydrox/Al Hydrox/Simeth 30 ml PO Q6HR PRN 02/27/23 02/27/23 History [Maalox] Magnesium Hydroxide [Milk of 7,200 mg PO DAILY PRN 02/27/23 02/27/23 History Magnesia Concentrate] Na Phos,M-B/Na Phos,Di-Ba [Fleet 133 ml RECTAL DAILY PRN 02/27/23 02/27/23 History Adult] Ondansetron Odt [Zofran Odt] 4 mg PO Q8HR PRN 02/27/23 02/27/23 History bisacodyL [Dulcolax] 10 mg RECTAL DAILY PRN 02/27/23 02/27/23 History polyethylene glycoL 3350 [Miralax] 17 gm PO Q48H 02/27/23 02/27/23 History Allergies Allergy/AdvReac Type Severity Reaction Status Date / Time No Known Allergies Allergy Verified 02/27/23 18:51 Physical Examination This is a pleasant 79-year-old female in no acute distress. She is alert and oriented to person. Her son is present at bedside. Exam of the head neck reveal no obvious deformity. She has fairly good cervical spine motion without difficulty or pain. No pain with palpation about cervical spine or paraspinal musculature. Exam of the upper extremities is unremarkable. She has fairly good shoulder, elbow, wrist and finger motion bilaterally. Neurovascular status the upper extremities is intact. Exam of the lower extremities reveals slight external rotation to the right leg. There is a small abrasion to the lateral lower leg. She has full foot and ankle motion. She does allow us to move the hip slightly with minimal discomfort. Neurovascular status to the lower extremities is intact. Results X-rays reveal a proximal femur periprosthetic fracture with mild displacement. Hip components are in good position and alignment. - Labs Labs: Abnormal Lab Results - Last 24 Hours (Table) 02/27/23 02/27/23 Range/Units 17:54 17:54 WBC 13.5 H (3.8-10.6) k/uL Neutrophils # 11.9 H (1.3-7.7) k/uL Lymphocytes # 0.7 L (1.0-4.8) k/uL Sodium 135 L (137-145) mmol/L BUN 29 H (7-17) mg/dL Glucose 108 H (74-99) mg/dL H & H 02/27/23 Range/Units 17:54 Hgb 13.0 (11.4-16.0) gm/dL Hct 40.5 (34.0-46.0) % Coagulation 02/27/23 Range/Units 17:54 INR 1.0 (<1.2) Result Diagrams: 02/27/23 17:54 02/27/23 17:54 Assessment and Plan (1) Yessi-prosthetic femoral shaft fracture Current Visit: Yes Status: Acute Code(s): M97.8XXA - PERIPROSTH FRACTURE AROUND OTHER INTERNAL PROSTH JOINT, INIT; Z96.649 - PRESENCE OF UNSPECIFIED ARTIFICIAL HIP JOINT SNOMED Code(s): 247837786 (2) S/P total hip arthroplasty Current Visit: No Status: Acute Code(s): Z96.649 - PRESENCE OF UNSPECIFIED ARTIFICIAL HIP JOINT SNOMED Code(s): 542148573902 Plan: The clinical and x-ray findings are discussed the patient and her son. The son is hesitant to consent to surgical intervention at this time. We had a long discussion discussing the risks versus benefits of surgical fixation of her fracture. The patient and her some elects to try some physical therapy to see how she does with bed to chair transfers. If she has minimal pain they may consider holding off on surgical intervention at this time.
[2023-02-28] MEDS: ACETAMINOPHEN TAB 325 MG TAB PO PRN ×2 (13:50→20:49)
[2023-02-28] MEDS ORDERED: ATORVASTATIN 10 MG TAB PO SCH (21:00)
--- NOTE | 2023-02-28 22:51 | P.CONS ---
History of Present Illness - Reason for Consult Consult date: 02/28/23 Medical management - Chief Complaint Right femur fracture - History of Present Illness Patient is a 87-year-old female with a known history of memory loss, macular degeneration, osteoarthritis, incontinent, irritable bowel syndrome, hyperlipidemia, and history of right total hip arthroplasty on 02/16/2022 who is currently at extended-care facility was transferred to ER status post fall while getting out of the toilet. Patient fell onto her right hip and is unable to stand and complaining of pain. EMS was called and patient noted to have shortening of the right lower extremity and was transferred to ER. Denies any head injury or neck trauma. Denies any complaints of abdominal pain. No nausea vomiting or diarrhea. No complaints of chest pain or shortness of breath. Denies any history of coronary artery disease. Laboratory showed WBC 13.5 hemoglobin 13.0 and platelets 382 Sodium 135 potassium 4.6 chloride 98 bicarb is 28 BUN 29 and creatinine 0.94 and blood sugar 108 Liver enzymes are not elevated albumin 4.6. X-ray of the right femur showed obliquely oriented fracture subtrochanteric region proximal right femur. Chest x-ray showed chronic changes without evidence for acute pulmonary process. Review of Systems Constitutional: Patient denies any fever or chills . no Generalized weakness. Abdomen: Patient denied any nausea or vomiting or abd. pain Cardiovascular: Patient denies any chest pain or short of breath no palpitations. Respiratory: patient denied any cough . no sputum production. No shortness of breath Neurologic: Patient denied any numbness or tingling headache. Musculoskeletal: Patient denies any complaints of joint swelling or deformity. Right lower extremity pain. Skin: Negative Psychiatric: Negative Endocrine: No heat or cold intolerance. No recent weight gain. Genitourinary: No dysuria or hematuria. All other 14 point ROS negative except the above Past Medical History Past Medical History: Eye Disorder Additional Past Medical History / Comment(s): macular degeneration - unable to read or write well. History of Any Multi-Drug Resistant Organisms: VRE Year Discovered:: 06/11/22 MDRO Source:: Urine Past Surgical History: Cholecystectomy, Hysterectomy, Joint Replacement Additional Past Surgical History / Comment(s): Right hip replacement (2020) Past Anesthesia/Blood Transfusion Reactions: No Reported Reaction Past Psychological History: No Psychological Hx Reported Smoking Status: Never smoker Past Alcohol Use History: Occasional Past Drug Use History: None Reported - Past Family History Sister(s) Family Medical History: Cancer Additional Family Medical History / Comment(s): OVARIAN CANCER Medications and Allergies Home Medications Medication Instructions Recorded Confirmed Type Magnesium 200 mg PO DAILY@1700 04/12/19 02/27/23 History Acetaminophen Tab [Tylenol] 1,000 mg PO BID@0800,2100 01/08/22 02/27/23 History Atorvastatin [Lipitor] 10 mg PO HS@209901/08/22 02/27/23 History Biotin 5 mg PO DAILY@17001/08/22 02/27/23 History Calcium Carbonate [Calcium] 600 mg PO DAILY@17001/08/22 02/27/23 History Dicyclomine [Bentyl] 10 mg PO DAILY@0800 01/08/22 02/27/23 History Lutein 10 mg PO DAILY@17001/08/22 02/27/23 History Oxybutynin ER [Ditropan Xl] 15 mg PO DAILY@0800 01/08/22 02/27/23 History Sennosides [Senokot] 2 tab PO DAILY PRN #60 tablet 02/16/22 02/27/23 Rx Acetaminophen [Tylenol Extra 1,000 mg PO BID PRN 02/27/23 02/27/23 History Strength] Aspirin 325 mg PO BID@0800,17002/27/23 02/27/23 History Baclofen [Lioresal] 10 mg PO BID PRN 02/27/23 02/27/23 History Clobetasol Propionate [Temovate 1 applic TOPICAL BID 02/27/23 02/27/23 History 0.05% Cream] Ensure Enlive 237 ml PO TID@0800,1200,169902/27/23 02/27/23 History Famotidine [Pepcid] 20 mg PO DAILY@0802/27/23 02/27/23 History Fish Oil/Dha/Epa [Fish Oil 1,200 1 cap PO DAILY@169902/27/23 02/27/23 History mg Fish Oil] Mag Hydrox/Al Hydrox/Simeth 30 ml PO Q6HR PRN 02/27/23 02/27/23 History [Maalox] Magnesium Hydroxide [Milk of 7,200 mg PO DAILY PRN 02/27/23 02/27/23 History Magnesia Concentrate] Na Phos,M-B/Na Phos,Di-Ba [Fleet 133 ml RECTAL DAILY PRN 02/27/23 02/27/23 History Adult] Ondansetron Odt [Zofran Odt] 4 mg PO Q8HR PRN 02/27/23 02/27/23 History bisacodyL [Dulcolax] 10 mg RECTAL DAILY PRN 02/27/23 02/27/23 History polyethylene glycoL 3350 [Miralax] 17 gm PO Q48H 02/27/23 02/27/23 History Allergies Allergy/AdvReac Type Severity Reaction Status Date / Time No Known Allergies Allergy Verified 02/27/23 18:51 Physical Exam Vitals: Vital Signs Temp Pulse Pulse Resp BP BP Pulse Ox 02/28/23 07:36 98.9 F 93 15 121/71 91 L 02/28/23 02:00 98.0 F 78 17 141/65 96 02/27/23 20:05 97.7 F 64 17 122/64 98 02/27/23 18:32 88 158/74 98 02/27/23 16:56 98.0 F 78 16 143/79 97 Intake and Output 02/27/23 02/28/23 02/28/23 22:59 06:59 14:59 Other: Weight 47.627 kg PHYSICAL EXAMINATION: Patient is lying in the bed comfortably, no acute distress, awake alert and oriented.. HEENT: Normocephalic. Neck is supple. Pupils reactive. Nostrils clear. Oral cavity is moist. Neck reveals no JVD, carotid bruits, or thyromegaly. CHEST EXAMINATION: Trachea is central. Symmetrical expansion. Lung lopez clear to auscultation and percussion. CARDIAC: Normal S1, S2 with no gallops. No murmurs ABDOMEN: Soft. Bowel sounds present. Nontender. No organomegaly. No abdominal bruits. Extremities: reveal no edema. No clubbing or cyanosis Neurologically awake, alert, oriented x2-3 mild cognitive impairment. No gross focal deficits noted Skin: No rash or skin lesions. Psychiatric: Coperative. Nonsuicidal, Musculoskeletal: No joint swelling or deformity. Tenderness over the right proximal femur and decreased range of motion. Results CBC & Chem 7: 02/27/23 17:54 02/27/23 17:54 Labs: Abnormal Lab Results - Last 24 Hours (Table) 02/27/23 02/27/23 Range/Units 17:54 17:54 WBC 13.5 H (3.8-10.6) k/uL Neutrophils # 11.9 H (1.3-7.7) k/uL Lymphocytes # 0.7 L (1.0-4.8) k/uL Sodium 135 L (137-145) mmol/L BUN 29 H (7-17) mg/dL Glucose 108 H (74-99) mg/dL Assessment and Plan Assessment: Right subtrochanteric proximal femur oblique fracture. Status post fall. Lik fabiola mechanical. History of right hip arthroplasty in February 2022 Hyperlipidemia History of IBS and is on Bentyl as needed. No active symptoms Mild cognitive impairment Overflow incontinence currently on oxybutynin History of urinary tract infections GI and DVT prophylaxis. Plan: Patient will be continued on gentle IV hydration with normal saline. Continue with pain management and bowel regimen. Ordered urinalysis with reflex culture. DVT prophylaxis as per orthopedic surgery protocol. Continue with home medications including oxybutynin and Bentyl as needed. Patient is low risk for orthopedic surgery. We will follow closely and further recommendations based on the clinical course. Thank you for your consult. Time with Patient: Greater than 30
[2023-02-28 23:52] LABS: Appearance,Urine Clear (Clear); Bacteria,Urine Occasional /hpf; Bilirubin,Urine Negative (Negative); Blood,Urine Small (Negative); Color,Urine Yellow; Glucose,Urine (UA) Negative (Negative); Ketones,Urine 1+ (Negative); Leukocyte Esterase,Urine Moderate (Negative); Mucus,Urine Few /hpf; Nitrite,Urine Negative (Negative); Protein,Urine 1+ (Negative); RBC,Urine 4 /hpf (0-5); Specific Gravity,Urine 1.018 (1.001-1.035); Squamous Epithelial Cell,Urine <1 /hpf (0-4); WBC,Urine 29 /hpf (0-5)
[2023-03-01] MEDS: SODIUM CHLORIDE 0.9% 1,000 ML IV SCH (07:52)
[2023-03-01 07:56] VITALS: PULSE 95
[2023-03-01] MEDS ORDERED: DICYCLOMINE 10 MG CAP PO SCH (08:00)
[2023-03-01] MEDS ORDERED: FAMOTIDINE 20 MG TAB PO SCH (08:00)
[2023-03-01] MEDS ORDERED: OXYBUTYNIN 15 MG TAB.ER.24 PO SCH (08:00)
--- NOTE | 2023-03-01 10:21 | P.DS ---
Providers Date of admission: 02/27/23 17:48 Expected date of discharge: 03/01/23 Attending physician: Dixie Ruffin DO Consults: 02/27/23 17:48 Consult Physician Routine Consulting Provider: Patsy Haro Consult Reason/Comments: Medical management Do you want consulting provider notified?: Yes Primary care physician: Rakesh Thomas - Discharge Diagnosis(es) (1) Yessi-prosthetic femoral shaft fracture Current Visit: Yes Status: Acute (2) S/P total hip arthroplasty Current Visit: No Status: Acute Hospital Course: This is an 87-year-old female who presented to the emergency department yesterday after falling while getting up to the bathroom. She resides at an extended care facility currently. She just recently has been independent with ambulation about her room. She uses the walker for ambulation. She has history of total right hip arthroplasty 1 year ago. Family states that she has had difficulty becoming ambulatory since the surgery. Patient does have some dementia but is able to provide some history. She denies head injury. She has no complaint of headache or neck pain today. She denies injury to her upper extremities. The patient is admitted to our service for further evaluation and possible surgical intervention. After discussion with the patient's family, they have decided on no surgical intervention at this time. The patient did well with physical therapy and was able to get up to a chair with minimal difficulty or pain. She has minimal complaints of pain at this time. The patient may be discharged back to [facility]. She is to be nonweightbearing to the right lower extremity. She will be bed to chair transfers only. She is to follow-up in our office in 2 weeks for x-ray. Patient Condition at Discharge: Stable Plan - Discharge Summary Discharge Rx Participant: No New Discharge Prescriptions: New HYDROcodone/APAP 5-325MG [Eldridge 5-325] 1 tab PO Q6HR PRN #28 tab PRN Reason: Pain No Action Magnesium 200 mg PO DAILY@1700 Lutein 10 mg PO DAILY@1700 Calcium Carbonate [Calcium] 600 mg PO DAILY@1700 Acetaminophen Tab [Tylenol] 1,000 mg PO BID@0800,2100 Oxybutynin ER [Ditropan Xl] 15 mg PO DAILY@0800 Dicyclomine [Bentyl] 10 mg PO DAILY@0800 Atorvastatin [Lipitor] 10 mg PO HS@2100 Sennosides [Senokot] 2 tab PO DAILY PRN #60 tablet PRN Reason: Constipation bisacodyL [Dulcolax] 10 mg RECTAL DAILY PRN PRN Reason: Constipation Acetaminophen [Tylenol Extra Strength] 1,000 mg PO BID PRN PRN Reason: Pain Or Fever > 100.5 Clobetasol Propionate [Temovate 0.05% Cream] 1 applic TOPICAL BID Famotidine [Pepcid] 20 mg PO DAILY@0800 Fish Oil/Dha/Epa [Fish Oil 1,200 mg Fish Oil] 1 cap PO DAILY@1700 Magnesium Hydroxide [Milk of Magnesia Concentrate] 7,200 mg PO DAILY PRN PRN Reason: Constipation Biotin 5 mg PO DAILY@1700 Na Phos,M-B/Na Phos,Di-Ba [Fleet Adult] 133 ml RECTAL DAILY PRN PRN Reason: Constipation Mag Hydrox/Al Hydrox/Simeth [Maalox] 30 ml PO Q6HR PRN PRN Reason: Gi Upset Baclofen [Lioresal] 10 mg PO BID PRN PRN Reason: BACK PAIN Ensure Enlive 237 ml PO TID@0800,1200,1700 Aspirin 325 mg PO BID@0800,1700 polyethylene glycoL 3350 [Miralax] 17 gm PO Q48H Ondansetron Odt [Zofran Odt] 4 mg PO Q8HR PRN PRN Reason: Nausea Discharge Medication List Magnesium 200 mg PO DAILY@17004/12/19 [History] Acetaminophen Tab [Tylenol] 1,000 mg PO BID@0800,209901/08/22 [History] Atorvastatin [Lipitor] 10 mg PO HS@209901/08/22 [History] Biotin 5 mg PO DAILY@169901/08/22 [History] Calcium Carbonate [Calcium] 600 mg PO DAILY@169901/08/22 [History] Dicyclomine [Bentyl] 10 mg PO DAILY@79901/08/22 [History] Lutein 10 mg PO DAILY@169901/08/22 [History] Oxybutynin ER [Ditropan Xl] 15 mg PO DAILY@0801/08/22 [History] Sennosides [Senokot] 2 tab PO DAILY PRN #60 tablet 02/16/22 [Rx] Acetaminophen [Tylenol Extra Strength] 1,000 mg PO BID PRN 02/27/23 [History] Aspirin 325 mg PO BID@0800,1700 02/27/23 [History] Baclofen [Lioresal] 10 mg PO BID PRN 02/27/23 [History] Clobetasol Propionate [Temovate 0.05% Cream] 1 applic TOPICAL BID 02/27/23 [History] Ensure Enlive 237 ml PO TID@0800,1200,1700 02/27/23 [History] Famotidine [Pepcid] 20 mg PO DAILY@0800 02/27/23 [History] Fish Oil/Dha/Epa [Fish Oil 1,200 mg Fish Oil] 1 cap PO DAILY@1700 02/27/23 [History] Mag Hydrox/Al Hydrox/Simeth [Maalox] 30 ml PO Q6HR PRN 02/27/23 [History] Magnesium Hydroxide [Milk of Magnesia Concentrate] 7,200 mg PO DAILY PRN 02/27/23 [History] Na Phos,M-B/Na Phos,Di-Ba [Fleet Adult] 133 ml RECTAL DAILY PRN 02/27/23 [History] Ondansetron Odt [Zofran Odt] 4 mg PO Q8HR PRN 02/27/23 [History] bisacodyL [Dulcolax] 10 mg RECTAL DAILY PRN 02/27/23 [History] polyethylene glycoL 3350 [Miralax] 17 gm PO Q48H 02/27/23 [History] HYDROcodone/APAP 5-325MG [Eldridge 5-325] 1 tab PO Q6HR PRN #28 tab 03/01/23 [Rx] Follow up Appointment(s)/Referral(s): Rakesh Thomas MD [Primary Care Provider] - 1-2 days Ellis Hastings DO [Doctor of Osteopathic Medicine] - 2 Weeks Activity/Diet/Wound Care/Special Instructions: Bed to chair transfers only. Nonweightbearing right lower extremity. May take Tylenol for mild pain and Eldridge 5/325 for moderate to severe pain.
[2023-03-01 10:53] LABS: Basophils # (A) 0.02 X 10*3/uL (0.00-0.10); Basophils % (A) 0.2 %; Eosinophils # (A) 0.01 X 10*3/uL (0.04-0.35); Eosinophils % (A) 0.1 %; HCT 33.1 % (37.2-46.3); HGB 10.7 g/dL (12.0-15.0); Immature Grans, Automated 0.4 %; Lymphocytes # (A) 0.72 X 10*3/uL (0.90-5.00); Lymphocytes % (A) 6.2 %; MCH 29.6 pg (27.0-32.0); MCHC 32.3 g/dL (32.0-37.0); MCV 91.4 fL (80.0-97.0); Mean Platelet Volume 10.7 fL (9.5-12.2); Monocytes # (A) 1.31 X 10*3/uL (0.20-1.00); Monocytes % (A) 11.3 %; NRBC Per 100 WBC 0 /100 WBCS (0.0-0.0); Neutrophils # (A) 9.44 X 10*3/uL (1.80-7.70); Neutrophils % (A) 81.8 %; Platelet Count 292 X 10*3/uL (140-440); RBC 3.62 X 10*6/uL (4.10-5.20); RDW 13.3 % (11.5-14.5); WBC 11.55 X 10*3/uL (4.50-10.00)
[2023-03-01 11:28] LABS: African American GFR (CKD) 96.3 (60.0-200.0); Anion Gap 10.4 mmol/L (10.00-18.00); BUN/Creat Ratio 17.76 Ratio (12.00-20.00); Calcium 8.7 mg/dL (8.7-10.3); Non-African American GFR(CKD) 83.1 (60.0-200.0)
[2023-03-01 14:43] VITALS: BP 115/78; RESP 17; TEMP 98.3
--- NOTE | 2023-03-02 02:14 | PN ---
PROGRESS NOTE DATE OF SERVICE: 03/01/2023 SUBJECTIVE: This is an 87-year-old woman, who was admitted with proximal femoral prior fracture, is being sent back to [facility]. Family apparently refused surgery. OBJECTIVE: VITAL SIGNS: Pulse 95, blood pressure 122/70, respirations 18. CHEST: Clear to auscultation. ABDOMEN: Soft. NERVOUS SYSTEM: Nonfocal. LABORATORY DATA: Reviewed. ASSESSMENT: 1. Status post right proximal femur fracture. 2. Hyperlipidemia. 3. Multiple medical issues. RECOMMENDATIONS: Recommend to continue current medications, continue symptomatic treatment. Otherwise, the overall prognosis is guarded. Recommend Palliative Care if acceptable to the family. Otherwise, prognosis guarded. Further recommendations to follow. Rest of the recommendations per Orthopedic Surgery. MMODL / IJN: [id number] /
== END 2023-03-01 16:04 | DRG 536 ==
LOC: EC 16:53 → 4SSUR 17:48
PROVIDERS: ADMIT Orthopaedic Surgery Hand Surgery; ATTEND Orthopaedic Surgery Hand Surgery
DX: S72.001A Fracture of unspecified part of neck of right femur, initial encounter for closed fracture (principal); M97.01XA Periprosthetic fracture around internal prosthetic right hip joint, initial encounter; K58.9 Irritable bowel syndrome, unspecified; R32 Unspecified urinary incontinence; Z20.822 Contact with and (suspected) exposure to COVID-19; Z79.82 Long term (current) use of aspirin; Z87.440 Personal history of urinary (tract) infections; Z79.899 Other long term (current) drug therapy; Z90.710 Acquired absence of both cervix and uterus; W19.XXXA Unspecified fall, initial encounter; Y92.091 Bathroom in other non-institutional residence as the place of occurrence of the external cause; Z90.49 Acquired absence of other specified parts of digestive tract
CPT/HCPCS: 36415; 51702; 71045; 73502; 80048; 80053; 81001; 85025; 85610; 85730; 87086; 87635; 96361; 96374; 96375; 99285